=== PATIENT | female | born 1985 | race Hispanic/Latino ===

== ENCOUNTER 2016-12-22 18:35 | Emergency (ER) | payer OTHER ==
[2016-12-22 18:35] VITALS: BMI 21.3
[2016-12-22 19:14] VITALS: TEMP 97.9
--- NOTE | 2016-12-22 20:02 | C.PDOC ---
History Of Present Illness A 36 year old female presents to the ER c/o painful lump in the vagina for 2 days. Patient denies fever, chills, vaginal drainage or bleeding, nausea, vomiting, or any other complaints. Time Seen by Provider: 12/22/16 19:22 Chief Complaint (Nursing): Female Genitourinary History Per: Patient History/Exam Limitations: no limitations Onset/Duration Of Symptoms: Days Current Symptoms Are (Timing): Still Present Severity: Mild Associated Symptoms: denies: Fever, Chills, Nausea, Urinary Symptoms Recent travel outside of the [place]: No Additional History Per: Patient Past Medical History Reviewed: Historical Data, Nursing Documentation, Vital Signs Vital Signs: Last Vital Signs Temp 97.9 F 12/22/16 19:12 Pulse 72 12/22/16 20:07 Resp 18 12/22/16 20:07 BP 124/75 12/22/16 20:07 Pulse Ox 100 12/22/16 23:08 - Medical History PMH: Anemia, Anxiety, Crohn's Disease, Diabetes, Fractures (wrist), Gall Bladder Disease, Kidney Stones, Personality Disorder, Chronic Kidney Disease Surgical History: Appendectomy, Cholecystectomy Family History: States: Unknown Family Hx - Social History Hx Tobacco Use: Yes Hx Alcohol Use: No Hx Substance Use: No - Immunization History Hx Tetanus Toxoid Vaccination: No Hx Influenza Vaccination: No Hx Pneumococcal Vaccination: No Review Of Systems Except As Marked, All Systems Reviewed And Found Negative. Constitutional: Negative for: Fever, Chills Gastrointestinal: Negative for: Nausea, Vomiting Genitourinary: Positive for: Other (Painful lump in vagina). Negative for: Vaginal Discharge, Vaginal Bleeding Physical Exam - Physical Exam Appears: Non-toxic, No Acute Distress Skin: Warm, Dry Head: Atraumatic, Normacephalic Eye(s): bilateral: Normal Inspection, PERRL Gastrointestinal/Abdominal: Normal Exam, No Tenderness Pelvic: No Vaginal Bleeding, No Vaginal Discharge, Other (Pea sized firm indurated and tender lump at the base of the vaginal opening ( perineal area)) Pulses: Left Dorsalis Pedis: Normal, Right Dorsalis Pedis: Normal Neurological/Psych: Oriented x3, Normal Speech, Normal Cognition ED Course And Treatment O2 Sat by Pulse Oximetry: 100 (RA) Pulse Ox Interpretation: Normal - Other Rad X-Ray left foot X-Ray: Interpreted by Me, Viewed By Me Interpretation: no fractures or dislocation Medical Decision Making Medical Decision Making: Plans: -Incision and drainage Procedure: area cleaned with a betadine solution. Using a 18 inch needle, I attempted needle aspiration of the mass with minimal purulent material collected On reassessment, patient is resting comfortably, and is in no acute distress. Patient was instructed to follow up with physician/clinic in 1-2 days for wound check Disposition Counseled Patient/Family Regarding: Diagnosis - Disposition Disposition: HOME/ ROUTINE Disposition Time: 19:59 Condition: STABLE Additional Instructions: Apply warm jerilyn to area Take meds as directed Wound check Return to ER if worse Prescriptions: Sulfamethoxazole/Trimethoprim [Bactrim DS 800 mg-160 mg] 1 tab PO BID #14 tab Instructions: Folliculitis (ED) - Clinical Impression Clinical Impression: Folliculitis - Scribe Statement The provider has reviewed the documentation as recorded by the Scribe Traci oliver All medical record entries made by the Marlynibe were at my direction and personally dictated by me. I have reviewed the chart and agree that the record accurately reflects my personal performance of the history, physical exam, medical decision making, and the department course for this patient. I have also personally directed, reviewed, and agree with the discharge instructions and disposition.
[2016-12-22 20:08] VITALS: BP 124/75; PULSE 72; RESP 18
[2016-12-22 20:09] VITALS: O2SAT 100
== END 2016-12-22 20:10 | disposition home or self-care (01) ==
LOC: C.ER 18:35
DX: L73.9 Follicular disorder, unspecified (principal)

== ENCOUNTER 2016-12-25 10:44 | Emergency (ER) | payer OTHER ==
[2016-12-25 10:50] VITALS: BMI 22.6
[2016-12-25 10:51] VITALS: TEMP 98.4; O2SAT 99
[2016-12-25] MEDS ORDERED: Sodium Chloride 0.9% 1,000 ML IV ONE (11:05)
[2016-12-25] MEDS ORDERED: Sodium Chloride 0.9% 1,000 ML ONE (11:24)
[2016-12-25 11:28] LABS: BASO % 0.6 % (0.0-2.0); EOS # 0.1 K/uL (0.0-0.7); EOS % 2.1 % (0.0-4.0); HEMATOCRIT 38.3 % (34.0-47.0); LYMPH # 0.9 K/uL (1.0-4.3); LYMPH % 13.1 % (20.0-40.0); MEAN CELL VOLUME 85.3 fL (81.0-99.0); MEAN CORPUSCULAR HEMOGLOBIN 28.5 pg (27.0-31.0); MEAN CORPUSCULAR HGB CONC 33.4 g/dL (33.0-37.0); MEAN PLATELET VOLUME 8.9 fL (7.2-11.7); MONO # 0.6 K/uL (0.0-0.8); MONO % 8.5 % (0.0-10.0); NRBC % 0.1 % (0.0-2.0); RED CELL DISTRIBUTION WIDTH 13.7 % (11.5-14.5)
--- NOTE | 2016-12-25 11:35 | C.PDOC ---
History Of Present Illness The patient, a 31 y/o female whose PMHx includes Crohn's disease and Endometriosis, presents to the ED for evaluation of abdominal pain and right- sided flank pain which has been occurring in intermittent episodes for around 2 months. Patient also reports hematuria. Patient notes she was evaluated in ED few days ago and underwent draining of Bartholin Cyst and was prescribed antibiotics. Patient denies fever, chills, nausea, vomiting. Patient has history of Medullary Sponge Kidney and Kidney Stones. Time Seen by Provider: 12/25/16 10:57 Chief Complaint (Nursing): Abdominal Pain History Per: Patient History/Exam Limitations: no limitations Onset/Duration Of Symptoms: Intermittent Episodes Current Symptoms Are (Timing): Still Present Quality Of Discomfort: "Pain" Associated Symptoms: Urinary Symptoms (+hematuria ). denies: Fever, Chills Additional History Per: Patient Abnormal Vaginal Bleeding: No Past Medical History Reviewed: Historical Data, Nursing Documentation, Vital Signs Vital Signs: Last Vital Signs Temp 98.4 F 12/25/16 10:51 Pulse 82 12/25/16 11:52 Resp 16 12/25/16 11:52 BP 122/83 12/25/16 11:52 Pulse Ox 99 12/25/16 13:35 - Medical History PMH: Anemia, Anxiety, Crohn's Disease, Diabetes, Fractures (wrist), Gall Bladder Disease, Kidney Stones, Personality Disorder, Chronic Kidney Disease Surgical History: Appendectomy, Cholecystectomy Family History: States: Unknown Family Hx - Social History Hx Tobacco Use: Yes Hx Alcohol Use: No Hx Substance Use: No - Immunization History Hx Tetanus Toxoid Vaccination: No Hx Influenza Vaccination: No Hx Pneumococcal Vaccination: No Review Of Systems Except As Marked, All Systems Reviewed And Found Negative. Constitutional: Negative for: Fever, Chills Gastrointestinal: Positive for: Abdominal Pain Genitourinary: Positive for: Hematuria Musculoskeletal: Positive for: Other (+right-sided flank pain ) Physical Exam - Physical Exam Appears: Non-toxic, No Acute Distress Skin: Normal Color, Warm, Dry Head: Atraumatic, Normacephalic Eye(s): bilateral: Normal Inspection Oral Mucosa: Moist Neck: Supple Chest: Symmetrical, No Deformity, No Tenderness Cardiovascular: Rhythm Regular, No Murmur Respiratory: Normal Breath Sounds, No Rales, No Rhonchi, No Wheezing Gastrointestinal/Abdominal: Soft, No Tenderness, No Guarding, No Rebound Back: CVA Tenderness (right-sided ) Extremity: Normal ROM, Capillary Refill (less than 2 seconds ) Neurological/Psych: Oriented x3, Normal Speech, Normal Cognition Gait: Steady ED Course And Treatment - Laboratory Results Result Diagrams: 12/25/16 11:23 12/25/16 11:23 Lab Interpretation: Normal Urine POC: Negative O2 Sat by Pulse Oximetry: 99 (on RA) Pulse Ox Interpretation: Normal - CT Scan/US No standard instances Other Rad Studies (CT/US): Read By Radiologist, Radiology Report Reviewed CT/US Interpretation: FINDINGS: LOWER THORAX: Unremarkable. LIVER: Tiny at small calcifications seen along the inferomedial aspect right lobe liver bordering the surface at and/or within the capsule nonspecific though unchanged from prior exam. GALLBLADDER AND BILE DUCTS: Status post cholecystectomy with metallic clips in the gallbladder fossa. PANCREAS: Unremarkable. No mass. No ductal dilatation. SPLEEN: Spleen measures nearly 11.5 cm in AP dimension. No splenic mass collection or calcification. ADRENALS: No adrenal lesions. There. KIDNEYS AND URETERS: Re- demonstrated are changes of hyperdense changes likely microcalcification consistent with Medrol O calcinosis. Discrete approximately 6 mm nonobstructing calculus mid to lower pole right kidney. No evidence of hydronephrosis. BLADDER: The urinary bladder is physiologically distended. No evidence of intraluminal urinary bladder calculi. No significant urinary bladder wall thickening. REPRODUCTIVE: Unremarkable. APPENDIX: Appendix is not seen with certainty however no inflammatory changes right lower quadrant of the abdomen. BOWEL: Unremarkable. No obstruction. No gross mural thickening. PERITONEUM: Unremarkable. No fluid collection. No free air. Slight dehiscence mid anterior abdominal wall the above and at the level of the umbilicus. LYMPH NODES: Unremarkable. No enlarged lymph nodes. VASCULATURE: Unremarkable. No aortic aneurysm. BONES: No fracture or destructive lesion. OTHER FINDINGS: None. IMPRESSION: Findings consistent with measurable calcinosis both kidneys. Nonobstructing calculus measuring approximately 6 mm mid to lower pole right kidney. No evidence of hydronephrosis. Status post cholecystectomy. Several tiny calcifications along the inferomedial aspect right lobe liver again noted unchanged from prior study. Rule out prior exposure to granulomatous disease process. Clinical correlation recommended. See above discussion for additional findings and details Progress Note: Labs, CT A/P ordered and reviewed. Patient received Morphine IV and IV Fluids. Reassessment Condition: Improved Disposition Counseled Patient/Family Regarding: Studies Performed, Diagnosis, Need For Followup, Rx Given - Disposition Referrals: [facility] [Outside] [facility] [Outside] Disposition: HOME/ ROUTINE Disposition Time: 13:40 Condition: STABLE Additional Instructions: Follow up with your kidney doctor for furter evaluation Prescriptions: traMADol [Ultram] 50 mg PO TID #10 tab Instructions: Flank Pain (ED) - POA Present On Arrival: None Core Measure Indicators: Chest Pain - Clinical Impression Clinical Impression: Flank pain, Medullary sponge kidney, Crohns disease - PA / NURSE CHARGE RN / Resident Statement MD/DO has reviewed & agrees with the documentation as recorded. - Scribe Statement The provider has reviewed the documentation as recorded by the Scribe (Tasha Bazan) All medical record entries made by the Scribe were at my direction and personally dictated by me. I have reviewed the chart and agree that the record accurately reflects my personal performance of the history, physical exam, medical decision making, and the department course for this patient. I have also personally directed, reviewed, and agree with the discharge instructions and disposition.
[2016-12-25 11:36] LABS: CHLORIDE 101 mmol/L (98-107)
[2016-12-25 11:37] LABS: POTASSIUM 3.8 mmol/L (3.6-5.2); SODIUM 134 mmol/L (132-148)
[2016-12-25 11:39] LABS: AST/SGOT 22 U/L (14-36); BILIRUBIN,TOTAL 0.3 mg/dL (0.2-1.3); CARBON DIOXIDE 25 mmol/L (22-30); GFR AFRICAN-AMERICAN > 60
[2016-12-25 11:40] LABS: ALB/GLOB RATIO 1.6 (1.0-2.1); ALKALINE PHOSPHATASE 82 U/L (38-126); ALT/SGPT 35 U/L (9-52); BLOOD UREA NITROGEN 13 mg/dL (7-17); CALCIUM 8.7 mg/dl (8.6-10.4); GLUCOSE,RANDOM 93 mg/dL (65-105); TOTAL PROTEIN 7.2 g/dL (6.3-8.3)
[2016-12-25 11:44] LABS: RBC URINE 1001 /hpf (0-3); URINE BILIRUBIN NEGATIVE (NEGATIVE); URINE BLOOD 3+ (NEGATIVE); URINE COLOR Yellow (YELLOW); URINE GLUCOSE (UA) NORMAL (Normal); URINE KETONE NEGATIVE (NEGATIVE); URINE LEUKOCYTE ESTERASE TRACE Leu/uL (Negative); URINE PROTEIN 1+ mg/dL (NEGATIVE); URINE UROBILINOGEN NORMAL mg/dL (0.2-1.0); WBC URINE 11 /hpf (0-5)
[2016-12-25] MEDS ORDERED: Alum-Mag Hydrox-Simethicone Susp (30 mL) ONE (11:48)
[2016-12-25] MEDS ORDERED: Alum-Mag Hydrox-Simethicone Susp (30 mL) PO STA (11:50)
[2016-12-25 11:53] VITALS: BP 122/83; PULSE 82; RESP 16
--- NOTE | 2016-12-25 13:07 | CT ---
PROCEDURE: CT Abdomen and Pelvis dated 12/25/2016 HISTORY: Pain COMPARISON: Comparison made with prior CT scan abdomen pelvis 05/13/2016 TECHNIQUE: Contiguous axial images of the abdomen and pelvis performed without oral or intravenous contrast material. . Coronal and Sagittal reformats generated. Radiation dose: Total exam DLP = 227.99 mGy-cm. This CT exam was performed using one or more of the following dose reduction techniques: Automated exposure control, adjustment of the mA and/or kV according to patient size, and/or use of iterative reconstruction technique. FINDINGS: LOWER THORAX: Unremarkable. LIVER: Tiny at small calcifications seen along the inferomedial aspect right lobe liver bordering the surface at and/or within the capsule nonspecific though unchanged from prior exam. GALLBLADDER AND BILE DUCTS: Status post cholecystectomy with metallic clips in the gallbladder fossa. PANCREAS: Unremarkable. No mass. No ductal dilatation. SPLEEN: Spleen measures nearly 11.5 cm in AP dimension. No splenic mass collection or calcification. ADRENALS: No adrenal lesions. There KIDNEYS AND URETERS: Re- demonstrated are changes of hyperdense changes likely microcalcification consistent with Medrol O calcinosis. Discrete approximately 6 mm nonobstructing calculus mid to lower pole right kidney. No evidence of hydronephrosis. BLADDER: The urinary bladder is physiologically distended. No evidence of intraluminal urinary bladder calculi. No significant urinary bladder wall thickening. REPRODUCTIVE: Unremarkable. APPENDIX: Appendix is not seen with certainty however no inflammatory changes right lower quadrant of the abdomen. BOWEL: Unremarkable. No obstruction. No gross mural thickening. PERITONEUM: Unremarkable. No fluid collection. No free air. Slight dehiscence mid anterior abdominal wall the above and at the level of the umbilicus LYMPH NODES: Unremarkable. No enlarged lymph nodes. VASCULATURE: Unremarkable. No aortic aneurysm. BONES: No fracture or destructive lesion. OTHER FINDINGS: None. IMPRESSION: Findings consistent with measurable calcinosis both kidneys. Nonobstructing calculus measuring approximately 6 mm mid to lower pole right kidney. No evidence of hydronephrosis. Status post cholecystectomy. Several tiny calcifications along the inferomedial aspect right lobe liver again noted unchanged from prior study. Rule out prior exposure to granulomatous disease process. Clinical correlation recommended. See above discussion for additional findings and details
== END 2016-12-25 14:34 | disposition home or self-care (01) ==
LOC: C.ER 10:44
DX: Q61.5 Medullary cystic kidney (principal); K50.90 Crohn's disease, unspecified, without complications
CPT/HCPCS: 74176; 80053; 81001; 84703; 85025; 96361; 96374; 99285; J2270; J7040

== ENCOUNTER 2016-12-31 19:40 | Emergency (ER) | payer OTHER ==
[2016-12-31 19:40] VITALS: BMI 22.6
[2016-12-31] MEDS ORDERED: Sodium Chloride 0.9% 2,000 ML IV ONE (19:50)
--- NOTE | 2016-12-31 19:53 | C.PDOC ---
History Of Present Illness A 31 y/o female presents to the ER c/o right flank pain that radiates to the groin for a couple of days. Pt notes the pain as sharp that is 5/10 discomfort that is worse today. Pt denies fever, chills, nausea, vomiting, dysuria, hematuria, vaginal bleeding or discharge, or any other complaints. Time Seen by Provider: 12/31/16 19:50 Chief Complaint (Nursing): Abdominal Pain History Per: Patient History/Exam Limitations: no limitations Onset/Duration Of Symptoms: Days Current Symptoms Are (Timing): Still Present Severity: Mild Pain Scale Rating Of: 5 Location Of Pain/Discomfort: RLQ, Other (Right flank radiating to the groin) Radiation Of Pain To:: Other (groin) Quality Of Discomfort: Sharp Associated Symptoms: denies: Fever, Chills, Nausea, Vomiting, Urinary Symptoms Recent travel outside of the [place]: No Additional History Per: Patient Abnormal Vaginal Bleeding: No Past Medical History Reviewed: Historical Data, Nursing Documentation, Vital Signs Vital Signs: Last Vital Signs Temp 98.5 F 12/31/16 19:41 Pulse 94 H 12/31/16 19:41 Resp 20 12/31/16 19:41 BP 132/95 H 12/31/16 19:41 Pulse Ox 100 12/31/16 21:36 - Medical History PMH: Anemia, Anxiety, Crohn's Disease, Diabetes, Fractures (wrist), Gall Bladder Disease, Kidney Stones, Personality Disorder, Chronic Kidney Disease Surgical History: Appendectomy, Cholecystectomy Family History: States: Unknown Family Hx - Social History Hx Tobacco Use: Yes Hx Alcohol Use: No Hx Substance Use: No - Immunization History Hx Tetanus Toxoid Vaccination: No Hx Influenza Vaccination: No Hx Pneumococcal Vaccination: No Review Of Systems Except As Marked, All Systems Reviewed And Found Negative. Constitutional: Negative for: Fever, Chills ENT: Negative for: Throat Pain Cardiovascular: Negative for: Chest Pain Gastrointestinal: Negative for: Nausea, Vomiting Genitourinary: Positive for: Other (Right flank pain radiating to the groin). Negative for: Dysuria, Hematuria, Vaginal Discharge, Vaginal Bleeding Skin: Negative for: Rash, Lesions, Jaundice Neurological: Negative for: Weakness Psych: Negative for: Anxiety Physical Exam - Physical Exam Appears: Non-toxic, No Acute Distress Skin: Warm, Dry Head: Normacephalic Eye(s): bilateral: Normal Inspection Oral Mucosa: Moist Neck: Supple Chest: Symmetrical Cardiovascular: Rhythm Regular, No Murmur Respiratory: No Rales, No Rhonchi, No Wheezing Gastrointestinal/Abdominal: Soft, Tenderness (Mild subrapubic tenderness), No Guarding, No Rebound Back: CVA Tenderness (Flank tenderness), No Vertebral Tenderness, No Paraspinal Tenderness Extremity: Normal ROM Extremity: Bilateral: Atraumatic, Normal Color And Temperature Neurological/Psych: Oriented x3, Normal Speech, Normal Cognition Gait: Steady ED Course And Treatment - Laboratory Results Result Diagrams: 12/31/16 20:00 12/31/16 20:00 O2 Sat by Pulse Oximetry: 100 (RA) Pulse Ox Interpretation: Normal Progress Note: blood work, ivf Reevaluation Time: 23:27 Reassessment Condition: Improved Disposition Counseled Patient/Family Regarding: Studies Performed, Diagnosis, Need For Followup, Rx Given - Disposition Referrals: Miko Narayanan Jr., MD [Staff Provider] - Disposition: HOME/ ROUTINE Disposition Time: 21:27 Condition: FAIR Prescriptions: Nitrofurantoin Macrocrystals [Macrobid] 1 cap PO BID #14 cap Tamsulosin HCl [Flomax] 0.4 mg PO DAILY #15 cap.er.24h traMADol [Ultram] 50 mg PO TID #15 tab Instructions: Renal Colic (ED), Urinary Tract Infection in Women (DC) - Clinical Impression Clinical Impression: UTI (urinary tract infection), Abdominal pain, Renal colic on right side - Scribe Statement The provider has reviewed the documentation as recorded by the Marlynibtapan oliver All medical record entries made by the Marlynibtapan were at my direction and personally dictated by me. I have reviewed the chart and agree that the record accurately reflects my personal performance of the history, physical exam, medical decision making, and the department course for this patient. I have also personally directed, reviewed, and agree with the discharge instructions and disposition.
[2016-12-31 19:54] VITALS: RESP 20
[2016-12-31 20:05] LABS: BASO # 0.1 K/uL (0.0-0.2); BASO % 1.1 % (0.0-2.0); EOS # 0.2 K/uL (0.0-0.7); EOS % 2.4 % (0.0-4.0); HEMATOCRIT 40.3 % (34.0-47.0); LYMPH # 2.1 K/uL (1.0-4.3); LYMPH % 21.9 % (20.0-40.0); MEAN CELL VOLUME 84.2 fL (81.0-99.0); MEAN CORPUSCULAR HEMOGLOBIN 28.1 pg (27.0-31.0); MEAN CORPUSCULAR HGB CONC 33.3 g/dL (33.0-37.0); MONO # 0.5 K/uL (0.0-0.8); MONO % 5.8 % (0.0-10.0); RED CELL DISTRIBUTION WIDTH 13.4 % (11.5-14.5); WHITE BLOOD COUNT 9.4 K/uL (4.8-10.8)
[2016-12-31 20:12] LABS: CHLORIDE 100 mmol/L (98-107); INR 1.1
[2016-12-31 20:13] LABS: POTASSIUM 3.7 mmol/L (3.6-5.2); SODIUM 140 mmol/L (132-148)
[2016-12-31 20:15] LABS: ALB/GLOB RATIO 1.5 (1.0-2.1); ALKALINE PHOSPHATASE 72 U/L (38-126); AST/SGOT 18 U/L (14-36); BILIRUBIN,TOTAL 0.7 mg/dL (0.2-1.3); BLOOD UREA NITROGEN 15 mg/dL (7-17); CARBON DIOXIDE 26 mmol/L (22-30); GFR AFRICAN-AMERICAN > 60; TOTAL PROTEIN 7.7 g/dL (6.3-8.3)
[2016-12-31 20:16] LABS: ALT/SGPT 21 U/L (9-52); GLUCOSE,RANDOM 92 mg/dL (65-105)
[2016-12-31 21:12] LABS: RBC URINE 545 /hpf (0-3); TRANSITIONAL EPITHIAL < 1 /hpf (0-3); URINE BACTERIA OCC (<OCC); URINE BILIRUBIN NEGATIVE (NEGATIVE); URINE BLOOD 3+ (NEGATIVE); URINE COLOR Yellow (YELLOW); URINE GLUCOSE (UA) NORMAL (Normal); URINE KETONE TRACE mg/dL (NEGATIVE); URINE LEUKOCYTE ESTERASE 1+ Leu/uL (Negative); URINE PROTEIN 1+ mg/dL (NEGATIVE); URINE UROBILINOGEN NORMAL mg/dL (0.2-1.0); WBC URINE 16 /hpf (0-5)
[2016-12-31 23:54] VITALS: BP 112/76; PULSE 72; TEMP 98; O2SAT 98
== END 2016-12-31 23:52 | disposition home or self-care (01) ==
LOC: C.ER 19:40
DX: N39.0 Urinary tract infection, site not specified (principal); N23 Unspecified renal colic
CPT/HCPCS: 80053; 81001; 83690; 84703; 85025; 85610; 85730; 96374; 96375; 96376; 99284; J1885; J2270; J2405; J7040

== ENCOUNTER 2017-02-11 06:18 | Day surgery (SDC) | payer OTHER ==
[2017-01-23 11:59] VITALS: BMI 24.8
[2017-02-11] MEDS ORDERED: Lactated Ringer's 1,000 ML IV ONE ×3 (07:29)
[2017-02-11] MEDS ORDERED: Propofol 10 mg/ml Inj (20 ML) ONE (07:44)
[2017-02-11] MEDS ORDERED: Midazolam 2 MG/2 ML VIAL ONE (07:45)
[2017-02-11] MEDS ORDERED: cefOXitin IV 1 gm in Dextrose 1 GM/50 ML BAG IVPB ONE (07:53)
[2017-02-11] MEDS ORDERED: cefOXitin IV 2 gm in Dextrose 0 GM/0 ML BAG IVPB ONE (07:53)
[2017-02-11] MEDS ORDERED: HYDROmorphone 0.5 mg/0.5 ml ISec IVP PRN (08:14)
[2017-02-11] MEDS ORDERED: Lactated Ringer's 500 ML IV ONE (09:40)
[2017-02-11 10:26] VITALS: RESP 16; TEMP 97
[2017-02-11 14:00] VITALS: BP 103/56; PULSE 63; O2SAT 100
--- NOTE | 2017-03-11 12:52 | PCM.OP ---
Operative Report - Operative Report Date of Surgery/Procedure: 02/11/17 Surgeon: Dr. Mccormick Anesthesia/Sedation: General Pre-Operative Diagnosis: Fibroids Uterus Menorrhagia Post-Operative Diagnosis: Fibroids Uterus Menorrhagia Operative Findings: 1 cm posterior submucosal myoma. Procedure/Operation Description: Patient was informed of the risks of the planned procedure including biological or deadly infection, hemorrhoid defense thrombosis, atelectasis, pneumonia, pulmonary embolism, damage to the bladder, damage to the ureter, renal insufficiency, renal failure, wound infection, instant sensational hernia, inflammation or damage to the large and small intestine, damage to inferior vena cava requiring extensive repair, anesthesia complications, electrolyte imbalance, possibility of , fluid overload, cerebral edema, embolism, recurrence of incisional fibroids. These risk have been explained to the patient; all questions were answered and informed consent was obtained. Patient was taken to the operating room in a stable condition under a suitable level of general anesthesia. She was prepped and draped in a sterile fashion after having been placed in a dorsal lithotomy position. The bladder was then bred after catheterization; examination and anesthesia revealed a normal size uterus, anteverted with no adnexal masses. A weighted speculum was inserted into the vagina. The anterior lip of the cervix was grasped using a single tooth tenaculum and endocervical curettage was performed and scan tissue was obtained. Uterus was sounded to 7 cm and the cervix was dilated to a number 69 dilator. A hysteroscope was inserted into the uterus and initiating myosure device at 1 cm posterior submucosal myoma. It was resected up to the level of the endometrium with good hemostasis. The hysteroscope was then removed and a general endometrial curettage was performed and scar tissue was obtained. At the end of the procedure the instruments were removed from the vagina, there was good hemostasis. The patient was the transferred into the recovery room in a stable condition. Pad and instrument counts were correct x2. Estimated Blood Loss: Less than 100 CC Complications: None
== END 2017-02-11 12:56 | disposition home or self-care (01) ==
LOC: C.SDS 06:18
PROVIDERS: ATTEND Obstetrics & Gynecology Reproductive Endocrinology
DX: D25.9 Leiomyoma of uterus, unspecified (principal); N88.2 Stricture and stenosis of cervix uteri
CPT/HCPCS: 36415; 58561; 82948; 86850; 86900; 88305; J0694; J2250; J2704; J3010; J7120

== ENCOUNTER 2017-02-14 22:21 | Emergency (ER) | payer OTHER ==
[2017-02-14 22:21] VITALS: BMI 24.8
[2017-02-14 22:56] VITALS: BP 122/89; PULSE 83; RESP 20; TEMP 98.3; O2SAT 100
[2017-02-14 23:07] LABS: HCG,QUALITATIVE URINE NEGATIVE (NEGATIVE)
[2017-02-14 23:12] LABS: SQUAMOUS EPITHIAL 7 /hpf (0-5); URINE BACTERIA OCC (<OCC); URINE BILIRUBIN NEGATIVE (NEGATIVE); URINE BLOOD 2+ (NEGATIVE); URINE CLARITY Clear (Clear); URINE COLOR Yellow (YELLOW); URINE GLUCOSE (UA) NORMAL (Normal); URINE LEUKOCYTE ESTERASE 2+ Leu/uL (Negative); URINE NITRATE NEGATIVE (NEGATIVE); URINE PROTEIN NEGATIVE (NEGATIVE); URINE UROBILINOGEN NORMAL mg/dL (0.2-1.0)
[2017-02-14] MEDS ORDERED: Bacitracin 500 Units/gm Oint Foilpak UD TOP ONE (23:38)
[2017-02-14] MEDS ORDERED: Bacitracin 500 Units/gm Oint Foilpak UD ONE (23:41)
--- NOTE | 2017-02-15 00:02 | C.PDOC ---
History Of Present Illness 31 year old female presents to the ED with complaints of an itchy burning sensation to the vaginal area with white discharge beginning today. Patient states two days ago Dr. Alvarez performed a D&C and she was placed on antibiotics. She denies any back pain, fever, or abdominal pain. Time Seen by Provider: 02/14/17 22:56 Chief Complaint (Nursing): Female Genitourinary History Per: Patient History/Exam Limitations: no limitations Onset/Duration Of Symptoms: Hrs Current Symptoms Are (Timing): Still Present Associated Symptoms: Other (itchy burning sensation to vaginal area and white discharge ). denies: Fever, Chills, Nausea, Vomiting Recent travel outside of the [place]: No Abnormal Vaginal Bleeding: No Past Medical History Reviewed: Historical Data, Nursing Documentation, Vital Signs Vital Signs: Last Vital Signs Temp 98.3 F 02/14/17 22:45 Pulse 83 02/14/17 22:45 Resp 20 02/14/17 22:45 BP 122/89 02/14/17 22:45 Pulse Ox 100 02/15/17 02:44 - Medical History PMH: Anemia, Anxiety, Crohn's Disease, Diabetes, Fractures (RIGHT HAND-CASTED ONLY), Gall Bladder Disease, Kidney Stones, Personality Disorder, Chronic Kidney Disease Surgical History: Appendectomy, Cholecystectomy Family History: States: Unknown Family Hx - Social History Hx Tobacco Use: Yes Hx Alcohol Use: No Hx Substance Use: No - Immunization History Hx Tetanus Toxoid Vaccination: No Hx Influenza Vaccination: No Hx Pneumococcal Vaccination: No Review Of Systems Constitutional: Negative for: Fever, Chills Physical Exam - Physical Exam Appears: Non-toxic, No Acute Distress Skin: Warm, Dry Head: Atraumatic, Normacephalic Eye(s): bilateral: Normal Inspection, PERRL, EOMI Oral Mucosa: Moist Neck: Normal ROM, Supple Chest: Symmetrical, No Deformity Cardiovascular: Rhythm Regular Respiratory: No Rales, No Rhonchi, No Stridor, No Wheezing Gastrointestinal/Abdominal: Soft, No Tenderness, No Distention, No Guarding, No Rebound Pelvic: Normal External Exam, No Vaginal Bleeding, Vaginal Discharge (white curd -like discharge ), No Cervical Motion Tenderness, No Adnexal Tenderness Extremity: Normal ROM, No Tenderness, No Swelling Neurological/Psych: Oriented x3, Normal Speech, Normal Cranial Nerves, Normal Motor, Normal Sensation Gait: Steady ED Course And Treatment O2 Sat by Pulse Oximetry: 100 (room air ) Pulse Ox Interpretation: Normal Disposition - Disposition Referrals: Saud Mccormick MD [Staff Provider] - Disposition: HOME/ ROUTINE Disposition Time: 00:00 Condition: GOOD Additional Instructions: Follow up with the OBGYN doctor within 1-2 days. Return if worsened Prescriptions: Bacitracin Ointment [Bacitracin] 30 gm TOP BID #1 tube Fluconazole [Diflucan] 150 mg PO ONCE #1 tab Instructions: Vulvovaginal Candidiasis (ED) - Clinical Impression Clinical Impression: Vulvovaginal candidiasis - Scribe Statement The provider has reviewed the documentation as recorded by the Scribe Nadege Larson All medical record entries made by the Scribe were at my direction and personally dictated by me. I have reviewed the chart and agree that the record accurately reflects my personal performance of the history, physical exam, medical decision making, and the department course for this patient. I have also personally directed, reviewed, and agree with the discharge instructions and disposition.
== END 2017-02-15 00:05 | disposition home or self-care (01) ==
LOC: C.ER 22:21
DX: B37.3 Candidiasis of vulva and vagina (principal)

== ENCOUNTER 2017-02-20 14:39 | Emergency (ER) | payer OTHER ==
[2017-02-20 14:39] VITALS: BMI 24.8
--- NOTE | 2017-02-20 15:59 | C.PDOC ---
History Of Present Illness 31-year-old female, PMHx includes Anemia, Anxiety, Crohn's Disease, Diabetes, Endometriosis, Gall Bladder Disease, Kidney Stones, Personality Disorder, Chronic Kidney Disease, presents to the emergency department with complaints of vaginal bleeding. Patient reports she had a D&C procedure on 02/11. This morning , patient woke up with right-sided flank pain associated with a vaginal bleed. Denies fevers, chills, or any other symptoms. Time Seen by Provider: 02/20/17 15:04 Chief Complaint (Nursing): Back Pain History Per: Patient History/Exam Limitations: no limitations Onset/Duration Of Symptoms: Hrs Current Symptoms Are (Timing): Still Present Past Medical History Reviewed: Historical Data, Nursing Documentation, Vital Signs Vital Signs: Last Vital Signs Temp 97.9 F 02/20/17 14:44 Pulse 75 02/20/17 18:35 Resp 16 02/20/17 18:35 BP 102/69 02/20/17 18:35 Pulse Ox 100 02/20/17 18:55 - Medical History PMH: Anemia, Anxiety, Crohn's Disease, Diabetes, Fractures (RIGHT HAND-CASTED ONLY), Gall Bladder Disease, Kidney Stones, Personality Disorder, Chronic Kidney Disease Surgical History: Appendectomy, Cholecystectomy Family History: States: No Known Family Hx - Social History Hx Tobacco Use: Yes Hx Alcohol Use: No Hx Substance Use: No - Immunization History Hx Tetanus Toxoid Vaccination: No Hx Influenza Vaccination: No Hx Pneumococcal Vaccination: No Review Of Systems Except As Marked, All Systems Reviewed And Found Negative. Constitutional: Negative for: Fever, Chills Cardiovascular: Negative for: Chest Pain, Palpitations Respiratory: Negative for: Shortness of Breath Gastrointestinal: Negative for: Nausea, Vomiting Genitourinary: Positive for: Vaginal Bleeding, Pelvic Pain Physical Exam - Physical Exam Appears: Non-toxic, No Acute Distress Skin: Warm, Dry, No Rash Head: Atraumatic, Normacephalic Eye(s): bilateral: Normal Inspection, PERRL Nose: Normal Oral Mucosa: Moist Lips: Normal Appearing Neck: Normal ROM Cardiovascular: Rhythm Regular, No Murmur Respiratory: Normal Breath Sounds, No Accessory Muscle Use Gastrointestinal/Abdominal: Soft, Tenderness (right sided, pelvic.), No Guarding , No Rebound Extremity: Normal ROM Neurological/Psych: Oriented x3, Normal Speech ED Course And Treatment - Laboratory Results Result Diagrams: 02/20/17 16:05 02/20/17 16:05 O2 Sat by Pulse Oximetry: 100 Pulse Ox Interpretation: Normal - CT Scan/US Pelvis ultrasound Other Rad Studies (CT/US): Read By Radiologist, Radiology Report Reviewed CT/US Interpretation: FINDINGS: UTERUS: Measures 8.6 x 4.3 x 5.7 cm. Anteverted. ENDOMETRIUM: Measures 6 mm in diameter. CERVIX: No cervical abnormality identified. RIGHT OVARY: Measures 2.3 x 1.5 x 2.2 cm. Blood flow is demonstrated. LEFT OVARY: Measures 2.7 x 1.8 x 2.2 cm. 0.7 x 0.5 x 0.8 cm follicle/cyst. Blood flow is demonstrated. FREE FLUID: Small pelvic free fluid. OTHER FINDINGS: None. IMPRESSION: 8 mm left ovarian follicle/cyst. Small pelvic free fluid. Progress Note: On re-exam patient feels better and is ready to be d/c home. Disposition - Disposition Referrals: Raf Marte DO [Staff Provider] - Disposition: HOME/ ROUTINE Disposition Time: 18:51 Condition: STABLE Additional Instructions: Follow up with PMD and OBGYn within 1-2 days. Return to Ed if feel worse. 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 - Scribe Statement The provider has reviewed the documentation as recorded by the Scribe (Sarah Burch) All medical record entries made by the Scribe were at my direction and personally dictated by me. I have reviewed the chart and agree that the record accurately reflects my personal performance of the history, physical exam, medical decision making, and the department course for this patient. I have also personally directed, reviewed, and agree with the discharge instructions and disposition.
[2017-02-20] MEDS ORDERED: Sodium Chloride 0.9% 1,000 ML IV STA (16:02)
[2017-02-20] MEDS ORDERED: Sodium Chloride 0.9% 1,000 ML ONE (16:06)
[2017-02-20] MEDS ORDERED: Morphine 4 MG/ML VIAL ONE (16:06)
[2017-02-20 16:07] LABS: HCG,QUALITATIVE URINE NEGATIVE (NEGATIVE)
[2017-02-20 16:11] LABS: BASO # 0.1 K/uL (0.0-0.2); BASO % 1.2 % (0.0-2.0); EOS # 0.1 K/uL (0.0-0.7); EOS % 1.3 % (0.0-4.0); LYMPH # 1.1 K/uL (1.0-4.3); MEAN CELL VOLUME 85.8 fL (81.0-99.0); MEAN CORPUSCULAR HEMOGLOBIN 28.4 pg (27.0-31.0); MEAN CORPUSCULAR HGB CONC 33.1 g/dL (33.0-37.0); MEAN PLATELET VOLUME 10.6 fL (7.2-11.7); MONO # 0.5 K/uL (0.0-0.8); MONO % 7.7 % (0.0-10.0); NEUT # 4.8 K/uL (1.8-7.0); NEUT % 72.8 % (50.0-75.0); RBC 4.57 Mil/uL (3.80-5.20); RED CELL DISTRIBUTION WIDTH 14.1 % (11.5-14.5); WHITE BLOOD COUNT 6.6 K/uL (4.8-10.8)
[2017-02-20 16:13] LABS: SQUAMOUS EPITHIAL 17 /hpf (0-5); URINE BACTERIA RARE (<OCC); URINE BILIRUBIN NEGATIVE (NEGATIVE); URINE BLOOD 3+ (NEGATIVE); URINE CLARITY Hazy (Clear); URINE COLOR Yellow (YELLOW); URINE GLUCOSE (UA) NORMAL (Normal); URINE LEUKOCYTE ESTERASE 3+ Leu/uL (Negative); URINE NITRATE NEGATIVE (NEGATIVE); URINE PROTEIN 1+ mg/dL (NEGATIVE); URINE UROBILINOGEN NORMAL mg/dL (0.2-1.0)
[2017-02-20 16:19] LABS: ALBUMIN 4.1 g/dL (3.5-5.0)
[2017-02-20 16:22] LABS: ALB/GLOB RATIO 1.4 (1.0-2.1); ALT/SGPT 14 U/L (9-52); AST/SGOT 21 U/L (14-36); BLOOD UREA NITROGEN 13 mg/dL (7-17); GFR AFRICAN-AMERICAN > 60; GFR NON-AFRICAN AMERICAN > 60
[2017-02-20 16:23] LABS: CALCIUM 9.9 mg/dl (8.6-10.4); LIPASE 60 U/L (23-300)
[2017-02-20] MEDS ORDERED: Aluminum Hydroxide/Magnesium Hydroxide Susp (30 mL) PO ONE (16:43)
[2017-02-20] MEDS ORDERED: Aluminum Hydroxide/Magnesium Hydroxide Susp (30 mL) ONE (16:45)
--- NOTE | 2017-02-20 18:03 | US ---
HISTORY: pelvic pain COMPARISON: Pelvic ultrasound performed 02/03/14 TECHNIQUE: Real-time transabdominal pelvic ultrasound was performed. In addition a transvaginal pelvic ultrasound was necessary to better depict pelvic anatomy. FINDINGS: UTERUS: Measures 8.6 x 4.3 x 5.7 cm. Anteverted. ENDOMETRIUM: Measures 6 mm in diameter. CERVIX: No cervical abnormality identified. RIGHT OVARY: Measures 2.3 x 1.5 x 2.2 cm. Blood flow is demonstrated. LEFT OVARY: Measures 2.7 x 1.8 x 2.2 cm. 0.7 x 0.5 x 0.8 cm follicle/cyst. Blood flow is demonstrated. FREE FLUID: Small pelvic free fluid. OTHER FINDINGS: None. IMPRESSION: 8 mm left ovarian follicle/cyst. Small pelvic free fluid.
[2017-02-20 19:29] VITALS: BP 102/68; PULSE 62; RESP 18; TEMP 97.7; O2SAT 97
== END 2017-02-20 19:20 | disposition home or self-care (01) ==
LOC: C.ER 14:39
DX: R10.2 Pelvic and perineal pain (principal)
CPT/HCPCS: 76830; 76856; 80053; 81001; 83690; 84703; 85025; 96361; 96374; 96375; 99285; J2270; J2405; J7040

== ENCOUNTER 2017-02-25 15:05 | Emergency (ER) | payer OTHER ==
[2017-02-25 15:05] VITALS: BMI 24.8
[2017-02-25 15:17] VITALS: RESP 18
[2017-02-25] MEDS ORDERED: oxyCODONE 5 mg Immediate Release Tab PO STA (15:57)
[2017-02-25] MEDS ORDERED: oxyCODONE 5 mg Immediate Release Tab ONE (16:13)
[2017-02-25 16:49] VITALS: BP 105/70; PULSE 66; TEMP 97.6; O2SAT 100
--- NOTE | 2017-02-25 18:20 | C.PDOC ---
History Of Present Illness 31 yr old female presents to the ER with complaints of persistent vaginal discharge, whitish in nature and burning with urination. Patient states she was seen last week for same symptoms last week and resolved with medications. Patient reports she has a CANCER REGISTRY COORDINATOR appointment tomorrow. Denies fever, nausea, vomiting, abdominal pain, diarrhea, hematuria, vaginal bleeding, back pain, weakness or numbness. Time Seen by Provider: 02/25/17 15:30 Chief Complaint (Nursing): Female Genitourinary History Per: Patient History/Exam Limitations: no limitations Onset/Duration Of Symptoms: Persistent Current Symptoms Are (Timing): Still Present Recent travel outside of the [place]: No Past Medical History Reviewed: Historical Data, Nursing Documentation, Vital Signs Vital Signs: Last Vital Signs Temp 97.6 F 02/25/17 16:47 Pulse 66 02/25/17 16:47 Resp 18 02/25/17 16:47 BP 105/70 02/25/17 16:47 Pulse Ox 100 02/25/17 18:22 - Medical History PMH: Anemia, Anxiety, Crohn's Disease, Diabetes, Fractures (RIGHT HAND-CASTED ONLY), Gall Bladder Disease, Kidney Stones, Personality Disorder, Chronic Kidney Disease Surgical History: Appendectomy, Cholecystectomy Family History: States: No Known Family Hx - Social History Hx Tobacco Use: Yes Hx Alcohol Use: No Hx Substance Use: No - Immunization History Hx Tetanus Toxoid Vaccination: No Hx Influenza Vaccination: No Hx Pneumococcal Vaccination: No Review Of Systems Except As Marked, All Systems Reviewed And Found Negative. Constitutional: Negative for: Fever Gastrointestinal: Negative for: Nausea, Vomiting, Abdominal Pain, Diarrhea Genitourinary: Positive for: Dysuria, Vaginal Discharge (Whitish in nature). Negative for: Hematuria, Vaginal Bleeding Musculoskeletal: Negative for: Back Pain Neurological: Negative for: Weakness, Numbness Physical Exam - Physical Exam Appears: Non-toxic, No Acute Distress Skin: Warm, Dry, No Rash Head: Atraumatic, Normacephalic Oral Mucosa: Moist Chest: Symmetrical, No Tenderness Cardiovascular: Rhythm Regular, No Murmur Respiratory: Normal Breath Sounds, No Rales, No Rhonchi, No Stridor, No Wheezing Pelvic: Other (Deferred) Extremity: Normal ROM, No Swelling Neurological/Psych: Oriented x3, Normal Speech, Normal Motor ED Course And Treatment O2 Sat by Pulse Oximetry: 100 Medical Decision Making Medical Decision Making: PLAN: * Diflucan PO * Oxycodone PO Disposition - Disposition Referrals: [facility] Osbaldo Sarahmarleni, [Non-Staff] - Disposition: HOME/ ROUTINE Disposition Time: 15:55 Condition: GOOD Additional Instructions: Thank you for letting us take care of you today. Your provider was Dr. Real. You were treated for vaginal discharge/discomfort. The emergency medical care you received today was directed at your acute symptoms. If you were prescribed any medication, please fill it and take as directed. It may take several days for your symptoms to resolve. Return to the Emergency Department if your symptoms worsen, do not improve, or if you have any other problems. Please contact your doctor or call one of the physicians/clinics you have been referred to that are listed on the Patient Visit Information form that is included in your discharge packet. Bring any paperwork you were given at discharge with you along with any medications you are taking to your follow up visit. Our treatment cannot replace ongoing medical care by a primary care provider (PCP) outside of the emergency department. Thank you for allowing the [facility] team to be part of your care today. Follow up with your CANCER REGISTRY COORDINATOR doctor as scheduled tomorrow. Prescriptions: Fluconazole [Diflucan] 150 mg PO ONCE #1 tab Miconazole 2% Vaginal [Monistat 7 Vaginal Cream] 7 applic VG HS #7 tube Phenazopyridine HCl [Pyridium] 100 mg PO TID #6 tablet Instructions: Vulvovaginal Candidiasis (ED), Vaginitis (ED) - Clinical Impression Clinical Impression: Vulvovaginal candidiasis - Scribe Statement The provider has reviewed the documentation as recorded by the Cecilia Blackmon Provider Attestation: All medical record entries made by the Cecilia were at my direction and personally dictated by me. I have reviewed the chart and agree that the record accurately reflects my personal performance of the history, physical exam, medical decision making, and the department course for this patient. I have also personally directed, reviewed, and agree with the discharge instructions and disposition.
== END 2017-02-25 17:20 | disposition home or self-care (01) ==
LOC: C.ER 15:05
DX: B37.3 Candidiasis of vulva and vagina (principal)

== ENCOUNTER 2017-03-02 20:54 | Emergency (ER) | payer OTHER ==
[2017-03-02 20:54] VITALS: BMI 24.8
[2017-03-02 21:13] VITALS: BP 123/81; PULSE 88; RESP 20; TEMP 98.3; O2SAT 98
[2017-03-02] MEDS: Sodium Chloride 0.9% 1,000 ML IV ONE ×2 (21:40→22:07)
[2017-03-02] MEDS ORDERED: Sodium Chloride 0.9% 1,000 ML ONE (21:41)
[2017-03-02 21:44] LABS: BASO # 0.1 K/uL (0.0-0.2); BASO % 1.2 % (0.0-2.0); EOS # 0.3 K/uL (0.0-0.7); EOS % 3.8 % (0.0-4.0); HEMOGLOBIN 11.3 g/dL (11.0-16.0); LYMPH % 28.5 % (20.0-40.0); MEAN CELL VOLUME 84.8 fL (81.0-99.0); MEAN CORPUSCULAR HEMOGLOBIN 28.7 pg (27.0-31.0); MEAN CORPUSCULAR HGB CONC 33.8 g/dL (33.0-37.0); MONO # 0.5 K/uL (0.0-0.8); MONO % 6.7 % (0.0-10.0); NEUT # 4.2 K/uL (1.8-7.0); NEUT % 59.8 % (50.0-75.0); RBC 3.95 Mil/uL (3.80-5.20); RED CELL DISTRIBUTION WIDTH 13.8 % (11.5-14.5); WHITE BLOOD COUNT 7.1 K/uL (4.8-10.8)
[2017-03-02 21:45] LABS: HCG,QUALITATIVE URINE NEGATIVE (NEGATIVE)
[2017-03-02 21:49] LABS: SQUAMOUS EPITHIAL 4 /hpf (0-5); URINE BACTERIA OCC (<OCC); URINE BILIRUBIN NEGATIVE (NEGATIVE); URINE BLOOD 3+ (NEGATIVE); URINE COLOR Yellow (YELLOW); URINE GLUCOSE (UA) NORMAL (Normal); URINE NITRATE NEGATIVE (NEGATIVE); URINE PROTEIN 2+ mg/dL (NEGATIVE); URINE UROBILINOGEN NORMAL mg/dL (0.2-1.0)
[2017-03-02 21:50] LABS: URINE CLARITY Hazy (Clear); URINE LEUKOCYTE ESTERASE 2+ Leu/uL (Negative)
[2017-03-02 21:54] LABS: ALBUMIN 3.7 g/dL (3.5-5.0)
[2017-03-02 21:56] LABS: BARBITURATES, UR NEGATIVE (NEGATIVE); GFR AFRICAN-AMERICAN > 60; GFR NON-AFRICAN AMERICAN > 60
[2017-03-02 21:57] LABS: ALB/GLOB RATIO 1.5 (1.0-2.1); ALT/SGPT 23 U/L (9-52); AST/SGOT 14 U/L (14-36); BENZODIAZEPINES, UR NEGATIVE (NEGATIVE); BLOOD UREA NITROGEN 11 mg/dL (7-17); LIPASE 67 U/L (23-300)
[2017-03-02 21:59] LABS: OPIATES, UR NEGATIVE (NEGATIVE)
[2017-03-02 22:00] LABS: PHENCYCLIDINE, UR NEGATIVE (NEGATIVE)
--- NOTE | 2017-03-02 22:10 | C.PDOC ---
Time Seen by Provider: 03/02/17 21:20 Chief Complaint (Nursing): Abdominal Pain History Per: Patient Onset/Duration Of Symptoms: Hrs (since this morning) Current Symptoms Are (Timing): Still Present Severity: Moderate Location Of Pain/Discomfort: RLQ Radiation Of Pain To:: Back Associated Symptoms: Back Pain, Urinary Symptoms (?) Alleviating Factors: None Additional History Per: Prior Records Past Medical History Reviewed: Historical Data, Nursing Documentation, Vital Signs Vital Signs: Last Vital Signs Temp 98.3 F 03/02/17 21:06 Pulse 88 03/02/17 21:06 Resp 20 03/02/17 21:06 BP 123/81 03/02/17 21:06 Pulse Ox 98 03/02/17 22:10 - Medical History PMH: Anemia, Anxiety, Crohn's Disease, Diabetes, Fractures (RIGHT HAND-CASTED ONLY), Kidney Stones, Personality Disorder, Chronic Kidney Disease Surgical History: Appendectomy, Cholecystectomy Other Surgeries: Recent Myomectomy Family History: States: Unknown Family Hx - Social History Hx Tobacco Use: Yes Hx Alcohol Use: No Hx Substance Use: No - Immunization History Hx Tetanus Toxoid Vaccination: No Hx Influenza Vaccination: No Hx Pneumococcal Vaccination: No Review Of Systems Except As Marked, All Systems Reviewed And Found Negative. Constitutional: Negative for: Fever, Weakness Cardiovascular: Negative for: Chest Pain Respiratory: Negative for: Shortness of Breath Gastrointestinal: Positive for: Abdominal Pain. Negative for: Vomiting, Diarrhea Genitourinary: Negative for: Vaginal Bleeding Musculoskeletal: Negative for: Neck Pain Skin: Negative for: Rash Neurological: Negative for: Weakness, Numbness, Seizures, Altered Mental Status Physical Exam - Physical Exam Appears: Non-toxic, No Acute Distress Skin: Normal Color, Warm, Dry, No Rash Head: Atraumatic, Normacephalic Eye(s): bilateral: Normal Inspection, PERRL, EOMI Neck: Normal ROM, Supple Cardiovascular: Rhythm Regular Respiratory: Normal Breath Sounds, No Accessory Muscle Use Gastrointestinal/Abdominal: Soft, Tenderness (RLQ), No Guarding, No Rebound Back: No CVA Tenderness Extremity: Normal ROM Neurological/Psych: Oriented x3, Normal Motor, Normal Sensation ED Course And Treatment - Laboratory Results Result Diagrams: 03/02/17 21:39 03/02/17 21:39 Interpretation Of Abnormal: Hematuria? Urine POC: Negative O2 Sat by Pulse Oximetry: 98 Pulse Ox Interpretation: Normal Progress Note: I had ordered a CT scan of the abdomen/pelvis, but I was informed by the staff that the pt walked out during evaluation and before going to CT scan. Disposition - Disposition Disposition: ELOPEMENT - ER ONLY Disposition Time: 22:15 Condition: UNKNOWN - Clinical Impression Clinical Impression: Patient left before treatment completed, Abdominal pain
== END 2017-03-02 22:18 | disposition left against medical advice (07) ==
LOC: C.ER 20:54
DX: R10.31 Right lower quadrant pain (principal)
CPT/HCPCS: 80053; 80324; 80345; 80346; 80349; 80353; 80358; 80361; 81001; 83690; 83992; 84703; 85025; 87086; 96374; 99284; J2765; J7040

== ENCOUNTER 2017-03-02 23:20 | Emergency (ER) | payer OTHER ==
[2017-03-02 23:20] VITALS: BMI 24.8
[2017-03-03] MEDS ORDERED: Morphine 4 MG/ML VIAL ONE (00:11)
--- NOTE | 2017-03-03 01:11 | CT ---
EXAM: CT Abdomen and Pelvis Without Intravenous Contrast CLINICAL HISTORY: 31 years old, female; Pain; Abdominal pain; Flank; Right; Additional info: Rlq/right flank pain TECHNIQUE: Axial computed tomography images of the abdomen and pelvis without intravenous contrast. This CT exam was performed using one or more of the following dose reduction techniques: automated exposure control, adjustment of the mA and/or kV according to patient size, and/or use of iterative reconstruction technique. Coronal and sagittal reformatted images were created and reviewed. COMPARISON: CT - ABD PELVIS W/O PO OR IV CONT 12/01/2015 10:20:11 PM FINDINGS: Lower thorax: The bilateral lung bases are clear. ABDOMEN: Liver: No acute findings Gallbladder and bile ducts: The gallbladder surgically absent. No intra-extrahepatic biliary ductal dilation. Pancreas: Limited evaluation secondary to the lack of intravenous contrast. Spleen: No acute findings. Adrenals: No acute findings. Kidneys and ureters: Moderate right-sided hydroureteronephrosis secondary to a 6 mm stone within the distal ureter. 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 No left-sided hydronephrosis is present. PELVIS: Bladder: No acute findings. Reproductive: No acute findings. Appendix: The appendix is not definitively visualized, however no pericecal inflammatory changes identified to suggest the presence of acute appendicitis. ABDOMEN and PELVIS: Stomach and bowel: No acute findings. Peritoneum: No acute findings. Lymph nodes: Limited evaluation without intravenous contrast. Vasculature: No aortic aneurysm. Bones: No acute fracture. IMPRESSION: Moderate right-sided hydroureteronephrosis secondary to a 6 mm stone in the distal right ureter.
[2017-03-03] MEDS ORDERED: Oxycodone/Acetaminophen 5/325 mg Tab PO STA (01:28)
[2017-03-03] MEDS ORDERED: Tmp-Smz 800 mg-160 mg DS Tab PO STA (01:28)
[2017-03-03] MEDS ORDERED: Oxycodone/Acetaminophen 5/325 mg Tab ONE (01:32)
[2017-03-03] MEDS ORDERED: Tmp-Smz 800 mg-160 mg DS Tab ONE (01:32)
[2017-03-03] MEDS ORDERED: Aluminum Hydroxide/Magnesium Hydroxide Susp (30 mL) PO ONE (01:44)
[2017-03-03] MEDS ORDERED: Aluminum Hydroxide/Magnesium Hydroxide Susp (30 mL) ONE (01:44)
--- NOTE | 2017-03-03 01:56 | C.PDOC ---
History Of Present Illness I saw this pt earlier today. She had eloped and now she came back. I will continue the workup by re-ordering the CT scan of abd/pelvis. Time Seen by Provider: 03/03/17 00:01 Chief Complaint (Nursing): Abdominal Pain History Per: Patient Onset/Duration Of Symptoms: Hrs Current Symptoms Are (Timing): Still Present Severity: Severe Location Of Pain/Discomfort: Other (Right flank) Radiation Of Pain To:: Back, Flank Quality Of Discomfort: "Pain" Associated Symptoms: Nausea Exacerbating Factors: None Alleviating Factors: None Additional History Per: Prior Records Abnormal Vaginal Bleeding: No Past Medical History Reviewed: Historical Data, Nursing Documentation, Vital Signs Vital Signs: Last Vital Signs Temp 98.1 F 03/02/17 23:28 Pulse 96 H 03/02/17 23:28 Resp 18 03/02/17 23:28 BP 128/92 H 03/02/17 23:28 Pulse Ox 96 03/02/17 23:28 - Medical History PMH: Anemia, Anxiety, Crohn's Disease, Diabetes, Fractures (RIGHT HAND-CASTED ONLY), Gall Bladder Disease, Kidney Stones, Personality Disorder, Chronic Kidney Disease Surgical History: Appendectomy, Cholecystectomy Family History: States: Unknown Family Hx - Social History Hx Tobacco Use: Yes Hx Alcohol Use: No Hx Substance Use: No - Immunization History Hx Tetanus Toxoid Vaccination: No Hx Influenza Vaccination: No Hx Pneumococcal Vaccination: No Review Of Systems Except As Marked, All Systems Reviewed And Found Negative. Constitutional: Negative for: Fever Cardiovascular: Negative for: Chest Pain Respiratory: Negative for: Shortness of Breath Gastrointestinal: Positive for: Abdominal Pain Musculoskeletal: Positive for: Back Pain. Negative for: Neck Pain Skin: Negative for: Rash Neurological: Negative for: Weakness, Numbness, Seizures, Altered Mental Status Physical Exam - Physical Exam Appears: No Acute Distress, Other (Uncomfortable) Skin: Normal Color, Warm, Dry, No Rash Head: Atraumatic, Normacephalic Eye(s): bilateral: Normal Inspection, PERRL, EOMI Neck: Normal ROM, Supple Cardiovascular: Rhythm Regular Respiratory: Normal Breath Sounds, No Accessory Muscle Use Gastrointestinal/Abdominal: Soft, Tenderness (mild right side), No Guarding, No Rebound Back: No CVA Tenderness Extremity: Normal ROM Neurological/Psych: Oriented x3, Normal Motor, Normal Sensation ED Course And Treatment O2 Sat by Pulse Oximetry: 96 Pulse Ox Interpretation: Normal - CT Scan/US CT abd/pelv. Other Rad Studies (CT/US): Read By Radiologist, Radiology Report Reviewed CT/US Interpretation: IMPRESSION: . Moderate right-sided hydroureteronephrosis secondary to a 6 mm stone in the. distal right ureter. Reassessment Condition: Improved Disposition Counseled Patient/Family Regarding: Studies Performed, Diagnosis, Need For Followup, Rx Given, Smoking Cessation - Disposition Referrals: Suleiman Sorenson MD [Staff Provider] - Raf Marte DO [Staff Provider] - Disposition Time: 01:57 Condition: IMPROVED Additional Instructions: Drink plenty of fluids. Follow up with your doctor within 1-2 days. Follow up with a Urologist this week for further evaluation and treatment. Return to the ER if you develop fever, not tolerating fluids, trouble urinating, worsening of symptoms or if you have any other concerns. Prescriptions: oxyCODONE/Acetaminophen [Percocet 5/325 mg Tab] 1 tab PO QID PRN #20 tab PRN Reason: Pain Sulfamethoxazole/Trimethoprim [Bactrim DS 800 mg-160 mg] 1 tab PO BID #14 tab Tamsulosin [Flomax] 0.4 mg PO HS #7 cap Instructions: Renal Colic (ED) - Clinical Impression Clinical Impression: Right distal ureteral calculus
[2017-03-03 02:22] VITALS: BP 100/60; PULSE 71; RESP 14; TEMP 98; O2SAT 97
== END 2017-03-03 02:20 | disposition home or self-care (01) ==
LOC: C.ER 23:20
DX: N13.2 Hydronephrosis with renal and ureteral calculous obstruction (principal)
CPT/HCPCS: 74176; 96372; 99284; J2270

== ENCOUNTER 2017-04-07 15:08 | Emergency (ER) | payer OTHER ==
[2017-04-07 15:09] VITALS: BMI 24.8
[2017-04-07 15:16] VITALS: BP 110/77; PULSE 102; RESP 16; TEMP 98.8; O2SAT 98
[2017-04-07 16:29] LABS: RBC URINE < 1 /hpf (0-3); URINE BACTERIA RARE (<OCC); URINE BILIRUBIN NEGATIVE (NEGATIVE); URINE BLOOD NEGATIVE (NEGATIVE); URINE COLOR Yellow (YELLOW); URINE GLUCOSE (UA) NORMAL (Normal); URINE KETONE NEGATIVE (NEGATIVE); URINE LEUKOCYTE ESTERASE 2+ Leu/uL (Negative); URINE PROTEIN NEGATIVE (NEGATIVE); URINE UROBILINOGEN NORMAL mg/dL (0.2-1.0); WBC URINE 7 /hpf (0-5)
--- NOTE | 2017-04-07 16:42 | C.PDOC ---
History Of Present Illness 32 y/o F c PMHx Crohn's disease, medullary sponge kidney, fibroids p/w body aches, subjective fever, sore throat, and bilateral ear pain since this morning. Patient states that she had the same symptoms 1 week prior and was called in a prescription for amoxicillin by her PMD, which she finished. She states she felt well over the weekend but woke up with these symptoms this morning. She states she has another prescription for amoxicillin called in for her today but can not be seen in doctor's office for several more days. Denies vomiting, diarrhea, dysuria, dyspnea, abdominal pain. Time Seen by Provider: 04/07/17 15:36 Chief Complaint (Nursing): Flu-like Symptoms History Per: Patient History/Exam Limitations: no limitations Onset/Duration Of Symptoms: Sudden Onset (Since morning) Current Symptoms Are (Timing): Still Present Past Medical History Reviewed: Historical Data, Nursing Documentation, Vital Signs Vital Signs: Last Vital Signs Temp 98.8 F 04/07/17 15:12 Pulse 102 H 04/07/17 15:12 Resp 16 04/07/17 15:12 BP 110/77 04/07/17 15:12 Pulse Ox 98 04/07/17 16:44 - Medical History PMH: Anemia, Anxiety, Crohn's Disease, Diabetes, Fractures (RIGHT HAND-CASTED ONLY), Gall Bladder Disease, Kidney Stones, Personality Disorder, Chronic Kidney Disease Surgical History: Appendectomy, Cholecystectomy Family History: States: No Known Family Hx - Social History Hx Tobacco Use: Yes Hx Alcohol Use: No Hx Substance Use: No - Immunization History Hx Tetanus Toxoid Vaccination: No Hx Influenza Vaccination: No Hx Pneumococcal Vaccination: No Review Of Systems Except As Marked, All Systems Reviewed And Found Negative. Constitutional: Positive for: Fever (Subjective), Other ((+) Body aches) ENT: Positive for: Ear Pain (Bilateral ), Throat Pain (Sore throat ) Cardiovascular: Negative for: Chest Pain Respiratory: Negative for: Shortness of Breath Gastrointestinal: Negative for: Vomiting, Abdominal Pain, Diarrhea Genitourinary: Negative for: Dysuria Physical Exam - Physical Exam Additional Physical Exam Comments: Constitutional: No acute distress. Head: Normocephalic. Atraumatic. Eyes: PERRL. ENT: Moist mucous membranes. Ears: (+) Right TM obscured by cerumen. Left TM normal. Throat: (+) Pharyngeal erythema without exudates. Neck: Supple. Cardiovascular: Regular rate. Radial pulses 2+ bilaterally. Chest: No tenderness. Respiratory: Clear to auscultation bilaterally. GI: Soft. Nontender. Nondistended. Back: No CVA tenderness. Musculoskeletal: No tenderness or swelling of extremities. Skin: No rash. Neurologic: Alert, no focal deficit. ED Course And Treatment O2 Sat by Pulse Oximetry: 98 (RA ) Pulse Ox Interpretation: Normal Medical Decision Making Medical Decision Making: Patient's symptoms consistent with viral illness. Recently finished antibiotics. UA shows WBCs and leukocyte esterase. Will send culture and have patient begin and finished amoxicllin which she already has. Otherwise, PO fluids, ibuprofen/acetaminophen. F/u PMD, return to ER for worsening pain, dyspnea, vomiting, stiff neck, or any other problem. Disposition - Disposition Referrals: Raf Marte DO [Staff Provider] - Disposition: HOME/ ROUTINE Disposition Time: 16:43 Condition: STABLE Prescriptions: Acetaminophen [Tylenol 325mg tab] 2 tab PO Q4H #30 tab Instructions: Viral Syndrome (ED) Forms: [employer] (Serbian) - Clinical Impression Clinical Impression: Influenza-like illness - Scribe Statement The provider has reviewed the documentation as recorded by the Marlynibtapan Blackmon Provider Attestation: All medical record entries made by the Scribe were at my direction and personally dictated by me. I have reviewed the chart and agree that the record accurately reflects my personal performance of the history, physical exam, medical decision making, and the department course for this patient. I have also personally directed, reviewed, and agree with the discharge instructions and disposition.
== END 2017-04-07 16:54 | disposition home or self-care (01) ==
LOC: C.ER 15:08
DX: J11.1 Influenza due to unidentified influenza virus with other respiratory manifestations (principal); Z72.0 Tobacco use

== ENCOUNTER 2017-04-13 16:31 | Emergency (ER) | payer OTHER ==
[2017-04-13 16:32] VITALS: BMI 24.8
[2017-04-13 16:41] VITALS: PULSE 72
--- NOTE | 2017-04-13 17:10 | C.PDOC ---
History Of Present Illness 32-year-old female presents to the ED for evaluation of rectal itching which began around 1 week ago. Patient notes the itchiness occurs mostly at night and reports it is associated with rectal "discharge that is a yellow/green color" . Patient denies fever, chills, recent illness, headache, dizziness, weakness, CP , SOB, dyspnea, diaphoresis, palpitation, abdominal pain, nausea, vomiting, changes in appetite or bowel movements, UTI sx, Ambulate to Ed for evaluation, nt in any apparent distress.. Time Seen by Provider: 04/13/17 16:47 Chief Complaint (Nursing): Abnormal Skin Integrity History Per: Patient History/Exam Limitations: no limitations Onset/Duration Of Symptoms: Other (1 week ) Current Symptoms Are (Timing): Still Present Quality Of Symptoms: Itching, Draining Additional History Per: Patient Past Medical History Reviewed: Historical Data, Nursing Documentation, Vital Signs Vital Signs: Last Vital Signs Temp 98.2 F 04/13/17 18:54 Pulse 72 04/13/17 18:54 Resp 18 04/13/17 18:54 BP 110/65 04/13/17 18:54 Pulse Ox 98 04/13/17 18:54 - Medical History PMH: Anemia, Anxiety, Crohn's Disease, Diabetes, Fractures (RIGHT HAND-CASTED ONLY), Gall Bladder Disease, Kidney Stones, Personality Disorder, Chronic Kidney Disease Surgical History: Appendectomy, Cholecystectomy Family History: States: Unknown Family Hx - Social History Hx Tobacco Use: Yes Hx Alcohol Use: No Hx Substance Use: No - Immunization History Hx Tetanus Toxoid Vaccination: No Hx Influenza Vaccination: No Hx Pneumococcal Vaccination: No Review Of Systems Constitutional: Negative for: Fever, Chills Gastrointestinal: Positive for: Other (+rectal itching associated with yellow/ green discharge ). Negative for: Nausea, Vomiting, Abdominal Pain, Diarrhea, Constipation Physical Exam - Physical Exam Appears: Well, Non-toxic, No Acute Distress Skin: Normal Color, Warm, Dry, No Rash, Other (superficial linear scratches noted to Right gluteus.) Eye(s): bilateral: PERRL Nose: No Flaring Oral Mucosa: Moist, No Drooling Tongue: Normal Appearing Lips: Normal Appearing Throat: No Exudate, No Drooling Neck: Supple Cardiovascular: Rhythm Regular Respiratory: No Decreased Breath Sounds, No Accessory Muscle Use, No Stridor, No Wheezing Gastrointestinal/Abdominal: Soft, No Tenderness, No Distention, No Guarding, No Rebound Rectal: Rectal Tone (goot), Heme Negative, No Hemorrhoids, No Mass, No Tenderness, Other ((-) lesions) Back: No CVA Tenderness Extremity: Normal ROM, No Pedal Edema, No Deformity Neurological/Psych: Oriented x3, Normal Speech ED Course And Treatment O2 Sat by Pulse Oximetry: 100 (on RA) Pulse Ox Interpretation: Normal Progress Note: On re-evaluation, pt is AAO#3, not in any apparent distress. Afebrile, hemodynamicaly stable. Non-toxic. Ambulatory in ED with stable gait. ENT: no acute findings. neck: Supple. Lungs: CTA B/L, BS equal B/L. ABd: benitgn, (-)guarding, (-) rebound. Rectal exam: no acute findings, good rectal tone. Back: (-) CVA tenderness. Case discussed with ED attending , recommend Albendazole with Anusol HC, discharge with outpt f/u at present time. Pt advised and Ref. to F/u with PMD, GI in 1-2 days for re-eval. return to ED if any worsening or new changes. Disposition Counseled Patient/Family Regarding: Diagnosis, Need For Followup - Disposition Referrals: Raf Marte DO [Staff Provider] - Brent Judd MD [Staff Provider] - Disposition: HOME/ ROUTINE Disposition Time: 17:43 Condition: STABLE Additional Instructions: Use topical cream as prescribed for rectal itchiness Benadryl PO as need for itchiness Follow up with PMD, GI in 1-2 days for re-evaluation. Return to ED if any worsening or new changes. Prescriptions: Bisacodyl [Dulcolax] 5 mg PO DAILY #10 tablet. Hydrocortisone 2.5% (Rectal) [Anusol-HC] 30 applic [place] BID #1 tube Instructions: Constipation (ED), Rectal Pain (ED) Forms: [facility] (Maltese) - Clinical Impression Clinical Impression: Rectal irritation, Constipation - PA / RAPID TRANSIT OPERATOR / Resident Statement / has reviewed & agrees with the documentation as recorded. - Scribe Statement The provider has reviewed the documentation as recorded by the Scribe (Tasha Bazan) All medical record entries made by the Scribe were at my direction and personally dictated by me. I have reviewed the chart and agree that the record accurately reflects my personal performance of the history, physical exam, medical decision making, and the department course for this patient. I have also personally directed, reviewed, and agree with the discharge instructions and disposition.
[2017-04-13 18:55] VITALS: BP 110/65; RESP 18; TEMP 98.2
[2017-04-16 18:18] VITALS: O2SAT 100
== END 2017-04-13 18:55 | disposition home or self-care (01) ==
LOC: C.ER 16:31
DX: K59.00 Constipation, unspecified (principal); K62.89 Other specified diseases of anus and rectum

== ENCOUNTER 2017-04-25 20:11 | Emergency (ER) | payer OTHER ==
[2017-04-25 20:12] VITALS: BMI 24.8
[2017-04-25 21:07] VITALS: BP 117/78; PULSE 68; RESP 15; TEMP 98; O2SAT 98
[2017-04-25 21:25] LABS: RBC URINE 111 /hpf (0-3); TRANSITIONAL EPITHIAL < 1 /hpf (0-3); URINE BACTERIA OCC (<OCC); URINE BILIRUBIN NEGATIVE (NEGATIVE); URINE BLOOD 3+ (NEGATIVE); URINE COLOR YELLOW (YELLOW); URINE GLUCOSE (UA) NORMAL (Normal); URINE KETONE NEGATIVE (NEGATIVE); URINE LEUKOCYTE ESTERASE 3+ Leu/uL (Negative); URINE PROTEIN NEGATIVE (NEGATIVE); URINE UROBILINOGEN NORMAL mg/dL (0.2-1.0); WBC URINE 35 /hpf (0-5)
--- NOTE | 2017-04-25 21:42 | C.PDOC ---
History Of Present Illness 32 y/o female c/o blisters in vagina area that pop when she wipes after urinating, sts she has had them before. +vaginal itch. denies discharge. no hx herpes. no fever or chills, no abdominal pain. Time Seen by Provider: 04/25/17 20:48 Chief Complaint (Nursing): Female Genitourinary History Per: Patient History/Exam Limitations: no limitations Current Symptoms Are (Timing): Still Present Quality Of Discomfort: "Pain" Associated Symptoms: denies: Fever, Chills, Vomiting Recent travel outside of the [place]: No Additional History Per: Prior Records Past Medical History Reviewed: Historical Data, Nursing Documentation, Vital Signs Vital Signs: Last Vital Signs Temp 98 F 04/25/17 21:00 Pulse 68 04/25/17 21:00 Resp 15 04/25/17 21:00 BP 117/78 04/25/17 21:00 Pulse Ox 98 05/04/17 21:36 - Medical History PMH: Anemia, Anxiety, Crohn's Disease, Diabetes, Fractures (RIGHT HAND-CASTED ONLY), Gall Bladder Disease, Kidney Stones, Personality Disorder, Chronic Kidney Disease Surgical History: Appendectomy, Cholecystectomy Family History: States: Unknown Family Hx - Social History Hx Tobacco Use: Yes Hx Alcohol Use: No Hx Substance Use: No - Immunization History Hx Tetanus Toxoid Vaccination: No Hx Influenza Vaccination: No Hx Pneumococcal Vaccination: No Review Of Systems Constitutional: Negative for: Fever, Chills Cardiovascular: Negative for: Chest Pain Respiratory: Negative for: Shortness of Breath Gastrointestinal: Negative for: Abdominal Pain Genitourinary: Positive for: Dysuria. Negative for: Frequency, Vaginal Discharge, Vaginal Bleeding Physical Exam - Physical Exam Appears: Non-toxic, No Acute Distress Skin: Warm, Dry Head: Atraumatic, Normacephalic Eye(s): bilateral: Normal Inspection, PERRL, EOMI Chest: Symmetrical, No Deformity Cardiovascular: Rhythm Regular, No Murmur Respiratory: Normal Breath Sounds, No Accessory Muscle Use Gastrointestinal/Abdominal: Bowel Sounds, Soft, No Tenderness Pelvic: Other (few scattered erythematous patches to external labia. no vesicles noted, no vag discharge noted. ) Neurological/Psych: Oriented x3, Normal Speech, Normal Cognition ED Course And Treatment O2 Sat by Pulse Oximetry: 98 (room air ) Medical Decision Making Medical Decision Making: pt with vaginal itch, erythema and itch to external labia with elevated wbc inurine, will tx for candid and uti. Disposition - Disposition Referrals: Saud Mccormick MD [Staff Provider] - Disposition: HOME/ ROUTINE Disposition Time: 22:37 Condition: STABLE Additional Instructions: Take antibiotics as directed. Drink increased fluids. Apply bacitracin to itchy irritated areas of vagina. Follow up with your painting and coating worker next week. Prescriptions: Bacitracin Ointment [Bacitracin] 30 gm TOP BID #1 tube Fluconazole [Diflucan] 150 mg PO ONCE #1 tab Nitrofurantoin Macrocrystals [Macrobid] 100 mg PO BID #14 cap Instructions: Urinary Tract Infection in Women (ED) Forms: [facility] (Gabonese), General Discharge Instructions - Clinical Impression Clinical Impression: UTI (urinary tract infection), Vaginal irritation - PA / CHANNEL CEMENTER OUTSOLE MACHINE / Resident Statement MD/DO has reviewed & agrees with the documentation as recorded. - Scribe Statement The provider has reviewed the documentation as recorded by the Scribe
== END 2017-04-25 22:55 | disposition home or self-care (01) ==
LOC: C.ER 20:11
DX: N39.0 Urinary tract infection, site not specified (principal); N89.8 Other specified noninflammatory disorders of vagina

== ENCOUNTER 2017-05-18 07:40 | Emergency (ER) | payer OTHER ==
[2017-05-18 07:40] VITALS: BMI 24.8
[2017-05-18] MEDS ORDERED: Lidocaine 75 MG in Sodium Chloride 0.9% 100 ML IV STA (08:00)
[2017-05-18] MEDS ORDERED: Sodium Chloride 0.9% 1,000 ML IV STA (08:00)
--- NOTE | 2017-05-18 08:00 | C.PDOC ---
Time Seen by Provider: 05/18/17 07:57 Chief Complaint (Nursing): Abdominal Pain Past Medical History Vital Signs: Last Vital Signs Temp 98.5 F 05/18/17 07:46 Pulse 95 H 05/18/17 07:46 Resp 16 05/18/17 07:46 BP 149/99 H 05/18/17 07:46 Pulse Ox 100 05/18/17 07:46 - Medical History PMH: Anemia, Anxiety, Crohn's Disease, Diabetes, Fractures (RIGHT HAND-CASTED ONLY), Gall Bladder Disease, Kidney Stones, Personality Disorder, Chronic Kidney Disease Surgical History: Appendectomy, Cholecystectomy Family History: States: Unknown Family Hx - Social History Hx Tobacco Use: Yes Hx Alcohol Use: No Hx Substance Use: No - Immunization History Hx Tetanus Toxoid Vaccination: No Hx Influenza Vaccination: No Hx Pneumococcal Vaccination: No ED Course And Treatment O2 Sat by Pulse Oximetry: 100 Disposition - Disposition
[2017-05-18] MEDS ORDERED: Lidocaine 75 MG in Sodium Chloride 0.9% 100 ML IV ONE (08:15)
[2017-05-18] MEDS ORDERED: Sodium Chloride 0.9% 1,000 ML ONE (08:17)
[2017-05-18 08:19] LABS: BASO # 0.1 K/uL (0.0-0.2); BASO % 1.1 % (0.0-2.0); EOS # 0.3 K/uL (0.0-0.7); EOS % 3.9 % (0.0-4.0); HEMATOCRIT 38.7 % (34.0-47.0); LYMPH # 1.8 K/uL (1.0-4.3); LYMPH % 26.9 % (20.0-40.0); MEAN CORPUSCULAR HEMOGLOBIN 28.2 pg (27.0-31.0); MEAN CORPUSCULAR HGB CONC 33.6 g/dL (33.0-37.0); MEAN PLATELET VOLUME 9.4 fL (7.2-11.7); MONO # 0.5 K/uL (0.0-0.8); MONO % 8.4 % (0.0-10.0); NRBC % 0.1 % (0.0-2.0); RED CELL DISTRIBUTION WIDTH 13.3 % (11.5-14.5); WHITE BLOOD COUNT 6.5 K/uL (4.8-10.8)
--- NOTE | 2017-05-18 08:19 | C.PDOC ---
History Of Present Illness 32 year old female, PMHx includes Anemia, Anxiety, Crohn's Disease, Diabetes, Endometriosis, Gall Bladder Disease, Kidney Stones, Personality Disorder, Chronic Kidney Disease, presents to the ED for evaluation of a possible kidney stone. Patient states, " I think I have a recurring kidney stone." Patient states she awoke with right groin pain with radiating to right flank. Patient notes symptoms are similar to prior. Patient also reports nausea. Patient is status post Flomax prior to arrival. She denies fever. Patient has past surgical history of appendectomy, cholecystectomy, and hernia. "I THINK I HAVE RECUR KIDNEY STONE". AWOKE W R GROIN PAIN, RADIATION R FLANK SIM TO PRIOR. +NAUSEA. 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 NO FEVER. PSH APPY, TWILA, HERNIA PMHx includes Anemia, Anxiety, Crohn's Disease, Diabetes, Endometriosis, Gall Bladder Disease, Kidney Stones, Personality Disorder, Chronic Kidney Disease, EXAM MOD DIST NONTOXIC ABD SOFT NT ND NO R/G NO CVAT REMAINDER NEG Time Seen by Provider: 05/18/17 07:57 Chief Complaint (Nursing): Abdominal Pain History Per: Patient History/Exam Limitations: no limitations Onset/Duration Of Symptoms: Hrs Current Symptoms Are (Timing): Still Present Quality Of Discomfort: "Pain" Associated Symptoms: Nausea. denies: Fever Additional History Per: Patient Abnormal Vaginal Bleeding: No Past Medical History Reviewed: Historical Data, Nursing Documentation, Vital Signs Vital Signs: Last Vital Signs Temp 97.7 F 05/18/17 11:19 Pulse 67 05/18/17 11:19 Resp 20 05/18/17 11:19 BP 101/65 05/18/17 11:19 Pulse Ox 97 05/18/17 11:19 - Medical History PMH: Anemia, Anxiety, Crohn's Disease, Diabetes, Fractures (RIGHT HAND-CASTED ONLY), Gall Bladder Disease, Kidney Stones, Personality Disorder, Chronic Kidney Disease Surgical History: Appendectomy, Cholecystectomy Family History: States: Unknown Family Hx - Social History Hx Tobacco Use: Yes Hx Alcohol Use: No Hx Substance Use: No - Immunization History Hx Tetanus Toxoid Vaccination: No Hx Influenza Vaccination: No Hx Pneumococcal Vaccination: No Review Of Systems Constitutional: Negative for: Fever Gastrointestinal: Positive for: Nausea Musculoskeletal: Positive for: Other (right groin pain radiating to right flank ) Physical Exam - Physical Exam Appears: Non-toxic, Other (moderate distress) Skin: Normal Color, Warm, Dry Head: Atraumatic, Normacephalic Eye(s): bilateral: Normal Inspection Oral Mucosa: Moist Neck: Supple Chest: Symmetrical, No Deformity Cardiovascular: Rhythm Regular, No Murmur Respiratory: Normal Breath Sounds, No Rales, No Rhonchi, No Wheezing Gastrointestinal/Abdominal: Soft, No Tenderness, No Distention, No Guarding, No Rebound Back: No CVA Tenderness Extremity: Normal ROM, Capillary Refill (less than 2 seconds ) Neurological/Psych: Oriented x3, Normal Speech, Normal Cognition Gait: Steady ED Course And Treatment - Laboratory Results Result Diagrams: 05/18/17 08:16 05/18/17 08:16 O2 Sat by Pulse Oximetry: 100 (on RA) Pulse Ox Interpretation: Normal Progress Note: Labs, CT A/P ordered and reviewed. Amoxicillin PO, Flomax PO, Morphoine IV, IV fluids, Tylenol PO, Zofran IVP administered. Progress - Re-Evaluation Re-evaluation Note: 05/18/17 09:30 STILL CO PERSIST PAIN. PS DOES NOT WISH ADMISSION, REQUESTS ADDL PAIN MEDS AND POSSIBLE DC HOME. 05/18/17 10:03 D/W DR PARTIDA AWARE OF ER FINDINGS. AUGMENT, ZOSYN, PAIN MEDS, FU OFFICE TOMORROW 05/18/17 10:33 APEPARS COMFORTABLE IMPROVED FROM PRIOR - Data Reviewed Data Reviewed: Lab, Diagnostic imaging, Old records - Continuity of Care Discussed pt. case with senior talent management consultant/specialty: Urology Disposition Counseled Patient/Family Regarding: Studies Performed, Diagnosis, Need For Followup, Rx Given - Disposition Referrals: Gomez Partida MD [Staff Provider] - Disposition: HOME/ ROUTINE Disposition Time: 10:34 Condition: IMPROVED Prescriptions: Amoxicillin/Clavulanate [Augmentin 875 MG-125 MG] 1 tab PO BID #14 tab Metoclopramide [Reglan] 1 tab PO TID PRN #25 tab PRN Reason: Nausea/Vomiting oxyCODONE/Acetaminophen [Percocet 5/325 mg Tab] 1 tab PO QID PRN #14 tab PRN Reason: Pain Tamsulosin [Flomax] 0.4 mg PO DAILY #14 cap Instructions: Kidney Stones (ED) Forms: [employer] (Kinyarwanda) - Clinical Impression Clinical Impression: Nephrolithiasis - PA / BIOLOGY FACULTY MEMBER / Resident Statement MD/DO has reviewed & agrees with the documentation as recorded. - Scribe Statement The provider has reviewed the documentation as recorded by the Scribe (Tasha Bazan) Provider Attestation: All medical record entries made by the Scribe were at my direction and personally dictated by me. I have reviewed the chart and agree that the record accurately reflects my personal performance of the history, physical exam, medical decision making, and the department course for this patient. I have also personally directed, reviewed, and agree with the discharge instructions and disposition.
[2017-05-18 08:50] LABS: CHLORIDE 98 mmol/L (98-107); POTASSIUM 3.6 mmol/L (3.6-5.2); SODIUM 137 mmol/L (132-148)
[2017-05-18 08:52] LABS: ALB/GLOB RATIO 1.4 (1.0-2.1); ALKALINE PHOSPHATASE 82 U/L (38-126); AST/SGOT 28 U/L (14-36); BILIRUBIN,TOTAL 0.7 mg/dL (0.2-1.3); CARBON DIOXIDE 23 mmol/L (22-30); GFR AFRICAN-AMERICAN > 60; TOTAL PROTEIN 7.6 g/dL (6.3-8.3)
[2017-05-18 08:53] LABS: ALT/SGPT 40 U/L (9-52); BLOOD UREA NITROGEN 14 mg/dL (7-17); CALCIUM 9.1 mg/dl (8.6-10.4); GLUCOSE,RANDOM 86 mg/dL (65-105)
--- NOTE | 2017-05-18 09:09 | CT ---
PROCEDURE: CT Abdomen and Pelvis with Oral contrast. HISTORY: R FLANK PAIN S/P APPY, TWILA COMPARISON: 03/03/2017 TECHNIQUE: Contiguous axial images of the abdomen and pelvis. Oral contrast was administered. No IV contrast given. Coronal and Sagittal reformats generated. Radiation dose: Total exam DLP = 244 mGy-cm. This CT exam was performed using one or more of the following dose reduction techniques: Automated exposure control, adjustment of the mA and/or kV according to patient size, and/or use of iterative reconstruction technique. FINDINGS: LOWER THORAX: Lung mariee are unremarkable without infiltrate or effusion. Visualized distal esophagus is unremarkable. LIVER: Liver is normal in size and overall density. No intrahepatic ductal dilatation is seen. There is a small amount of hypodensity seen in the left lobe of the liver adjacent to the stomach more than likely related to artifact. There are 3 tiny calcifications along the medial aspect of the right lobe of the liver, nonspecific. GALLBLADDER AND BILE DUCTS: There is evidence of prior cholecystectomy. Common bile duct is normal in size for a post cholecystectomy patient of this age. PANCREAS: Unremarkable. No mass. No ductal dilatation. SPLEEN: Unremarkable. No splenomegaly. ADRENALS: Unremarkable. KIDNEYS AND URETERS: There is evidence of medullary sponge kidney, medullary calcinosis. There is evidence of a 6-7 millimeter distal obstructing right ureteral calculus. This is causing right hydronephrosis and mild perinephric change. No left ureteral calculi are noted. No bladder calculus is seen. It is uncertain as to whether this calculus is the same calculus seen on the prior examination BLADDER: Grossly unremarkable. REPRODUCTIVE: Uterus and adnexal regions are unchanged from prior study. APPENDIX: Removed by clinical history. No right lower quadrant inflammatory process is seen. Terminal ileum is unremarkable. BOWEL: No appreciable acute inflammatory process in the colon. No small bowel obstruction. PERITONEUM: No ascites is seen. Small ventral hernia with fat, and no bowel extending into this region. LYMPH NODES: Unremarkable. No enlarged lymph nodes. VASCULATURE: Unremarkable. No aortic aneurysm. BONES: No fracture or destructive lesion. OTHER FINDINGS: None. IMPRESSION: 6-7 millimeter obstructing distal right ureteral calculus causing mild right hydronephrosis. Medullary calcinosis. No appreciable acute inflammatory process elsewhere in the abdomen and pelvis.
[2017-05-18] MEDS ORDERED: Morphine 4 MG/ML VIAL IV ONE (09:25)
[2017-05-18] MEDS ORDERED: Morphine 4 MG/ML VIAL ONE (09:33)
[2017-05-18 09:40] LABS: RBC URINE 10 /hpf (0-3); URINE BACTERIA RARE (<OCC); URINE BILIRUBIN NEGATIVE (NEGATIVE); URINE BLOOD 1+ (NEGATIVE); URINE COLOR Straw (YELLOW); URINE GLUCOSE (UA) NORMAL (Normal); URINE KETONE NEGATIVE (NEGATIVE); URINE LEUKOCYTE ESTERASE 3+ Leu/uL (Negative); URINE PROTEIN NEGATIVE (NEGATIVE); URINE UROBILINOGEN NORMAL mg/dL (0.2-1.0); WBC URINE 34 /hpf (0-5)
[2017-05-18] MEDS ORDERED: Amoxicillin-Clav 875-125 mg Tab PO STA (10:31)
[2017-05-18] MEDS ORDERED: Amoxicillin-Clav 875-125 mg Tab PO ONE (11:18)
[2017-05-18 11:20] VITALS: BP 101/65; PULSE 67; RESP 20; TEMP 97.7
[2017-05-20 16:36] VITALS: O2SAT 100
== END 2017-05-18 11:41 | disposition home or self-care (01) ==
LOC: C.ER 07:40
DX: N20.0 Calculus of kidney (principal); E11.22 Type 2 diabetes mellitus with diabetic chronic kidney disease; N18.9 Chronic kidney disease, unspecified
CPT/HCPCS: 74176; 80053; 81001; 85025; 96361; 96374; 96375; 99285; J2001; J2270; J2405; J7040

== ENCOUNTER 2017-06-07 08:41 | Inpatient (IN) | payer OTHER ==
[2017-06-07 08:42] VITALS: BMI 24.8
[2017-06-07 09:42] LABS: RBC URINE 14 /hpf (0-3); URINE BACTERIA RARE (<OCC); URINE BILIRUBIN NEGATIVE (NEGATIVE); URINE BLOOD 1+ (NEGATIVE); URINE COLOR Yellow (YELLOW); URINE GLUCOSE (UA) NORMAL (Normal); URINE KETONE NEGATIVE (NEGATIVE); URINE LEUKOCYTE ESTERASE 3+ Leu/uL (Negative); URINE PROTEIN 1+ mg/dL (NEGATIVE); URINE UROBILINOGEN NORMAL mg/dL (0.2-1.0); WBC URINE 61 /hpf (0-5)
[2017-06-07] MEDS ORDERED: Sodium Chloride 0.9% 1,000 ML IV STA (10:18)
--- NOTE | 2017-06-07 10:35 | C.PDOC ---
History Of Present Illness 32 y/o F presents with R groin pain radiating to R flank associated with nausea and hematuria. Patient states she was here 20 days ago and diagnosed with 8mm kidney stone. She states it has not passed, she is out of her Percocet prescription and is in severe pain. She states she has been unable to follow up with Urology as her insurance is not accepted. Denies fever, vomiting, dyspnea. Time Seen by Provider: 06/07/17 10:07 Chief Complaint (Nursing): Female Genitourinary Past Medical History Vital Signs: Last Vital Signs Temp 98.1 F 06/07/17 08:51 Pulse 79 06/07/17 12:40 Resp 18 06/07/17 12:40 BP 120/80 06/07/17 12:40 Pulse Ox 100 06/07/17 12:40 - Medical History PMH: Anemia, Anxiety, Crohn's Disease, Diabetes, Fractures (RIGHT HAND-CASTED ONLY), Gall Bladder Disease, Kidney Stones, Personality Disorder, Chronic Kidney Disease Surgical History: Appendectomy, Cholecystectomy Family History: States: Unknown Family Hx - Social History Hx Tobacco Use: Yes Hx Alcohol Use: No Hx Substance Use: No - Immunization History Hx Tetanus Toxoid Vaccination: No Hx Influenza Vaccination: No Hx Pneumococcal Vaccination: No Review Of Systems Except As Marked, All Systems Reviewed And Found Negative. Constitutional: Negative for: Fever Respiratory: Negative for: Shortness of Breath Physical Exam - Physical Exam Additional Physical Exam Comments: Constitutional: No acute distress. Head: Normocephalic. Atraumatic. Eyes: PERRL. ENT: Moist mucous membranes. Neck: Supple. Cardiovascular: Regular rate. Radial pulse 2+ bilaterally. Chest: No tenderness. Respiratory: Clear to auscultation bilaterally. GI: Soft. Nontender. Non distended. Back: R CVA tenderness. Musculoskeletal: No tenderness or swelling of extremities. Skin: No rash. Neurologic: Alert, no focal deficit. ED Course And Treatment - Laboratory Results Result Diagrams: 06/07/17 11:11 06/07/17 11:11 O2 Sat by Pulse Oximetry: 100 Medical Decision Making Medical Decision Making: FINDINGS: LOWER THORAX: Lung bases clear. No infiltrate effusion or basilar pneumothorax. Heart size within range of normal. No significant pericardial effusion. LIVER: Mid liver exhibits normal size. Few tiny radiopaque density seen along the inferomedial surface right lobe liver which could be secondary to capsular surface calcification or possibly related to prior cholecystectomy. . These foci are unchanged No gross lesion or ductal dilatation. GALLBLADDER AND BILE DUCTS: Status post cholecystectomy with multiple metallic clips again seen all in the gallbladder fossa PANCREAS: Unremarkable. No mass. No ductal dilatation. SPLEEN: Unremarkable. No splenomegaly. ADRENALS: Unremarkable. KIDNEYS AND URETERS: Re- demonstrated is bilateral medullary calcinosis likely representing medullary sponge kidney. . There is moderate right-sided hydronephrosis which is felt to be secondary to a distal right ureteral calculus measuring approximately 6.5 mm best seen on axial image number [id number] BLADDER: Urinary bladder is incompletely distended which may account for sickle thick- walled appearance. Possibility of a cystitis not excluded. REPRODUCTIVE: Uterus and adnexal structures unremarkable as visualized. APPENDIX: Appendix is not seen with any certainty consistent with patient's history of appendectomy. The aaron all BOWEL: Unremarkable. No obstruction. No gross mural thickening. PERITONEUM: Unremarkable. No fluid collection. No free air. . Localized small area of dehiscence mid anterior abdominal wall LYMPH NODES: Unremarkable. No enlarged lymph nodes. VASCULATURE: Unremarkable. No aortic aneurysm. BONES: No fracture or destructive lesion. OTHER FINDINGS: None. IMPRESSION: Bilateral medullary calcinosis consistent with medullary sponge kidney. There is a 6.5 mm calculus distal right ureter with persistent moderate right-sided hydronephrosis. . Urinary bladder incompletely distended which may account for thick-walled appearance. Rule out cystitis. Re- demonstrated are changes of cholecystectomy. Small localized dehiscence of the mid anterior abdominal wall Patient started on antibiotics, IVF, pain medication. Dr. Elmore accepts patient to hospitalist service. Disposition Discussed With : Son Elmore Doctor Will See Patient In The: Hospital - Disposition Disposition: HOSPITALIZED Disposition Time: 11:55 Condition: FAIR Forms: [employer] [employer] (Malawian) - Clinical Impression Clinical Impression: UTI (urinary tract infection), Nephrolithiasis
[2017-06-07] MEDS ORDERED: Morphine 4 MG/ML VIAL ONE (10:53)
[2017-06-07] MEDS ORDERED: Sodium Chloride 0.9% 1,000 ML ONE ×2 (10:54→14:27)
[2017-06-07 11:16] LABS: BASO # 0.1 K/uL (0.0-0.2); BASO % 1.2 % (0.0-2.0); EOS # 0.2 K/uL (0.0-0.7); EOS % 3.1 % (0.0-4.0); HEMATOCRIT 39.2 % (34.0-47.0); LYMPH # 1.1 K/uL (1.0-4.3); LYMPH % 21.2 % (20.0-40.0); MEAN CELL VOLUME 84.5 fL (81.0-99.0); MEAN CORPUSCULAR HEMOGLOBIN 28.3 pg (27.0-31.0); MEAN CORPUSCULAR HGB CONC 33.5 g/dL (33.0-37.0); MEAN PLATELET VOLUME 9.2 fL (7.2-11.7); MONO # 0.5 K/uL (0.0-0.8); MONO % 9.8 % (0.0-10.0); RED CELL DISTRIBUTION WIDTH 14.1 % (11.5-14.5); WHITE BLOOD COUNT 5.1 K/uL (4.8-10.8)
[2017-06-07 11:26] LABS: CHLORIDE 101 mmol/L (98-107); SODIUM 135 mmol/L (132-148)
[2017-06-07 11:27] LABS: POTASSIUM 3.6 mmol/L (3.6-5.2)
[2017-06-07 11:29] LABS: ALKALINE PHOSPHATASE 87 U/L (38-126); ALT/SGPT 44 U/L (9-52); AST/SGOT 22 U/L (14-36); BILIRUBIN,TOTAL 0.7 mg/dL (0.2-1.3); BLOOD UREA NITROGEN 15 mg/dL (7-17); CARBON DIOXIDE 23 mmol/L (22-30); GFR AFRICAN-AMERICAN > 60; TOTAL PROTEIN 8.6 g/dL (6.3-8.3)
[2017-06-07 11:30] LABS: CALCIUM 9.4 mg/dl (8.6-10.4); GLUCOSE,RANDOM 83 mg/dL (65-105)
--- NOTE | 2017-06-07 11:57 | CT ---
PROCEDURE: CT abdomen and pelvis dated 06/07/2017. HISTORY: flank pain COMPARISON: Comparison made with CT scan of the abdomen pelvis 05/18/2017 TECHNIQUE: Contiguous axial images of the abdomen and pelvis. Oral contrast was administered. No IV contrast given. Coronal and Sagittal reformats generated. Radiation dose: Total exam DLP = 296.06 mGy-cm. This CT exam was performed using one or more of the following dose reduction techniques: Automated exposure control, adjustment of the mA and/or kV according to patient size, and/or use of iterative reconstruction technique. FINDINGS: LOWER THORAX: Lung bases clear. No infiltrate effusion or basilar pneumothorax. Heart size within range of normal. No significant pericardial effusion. LIVER: Mid liver exhibits normal size. Few tiny radiopaque density seen along the inferomedial surface right lobe liver which could be secondary to capsular surface calcification or possibly related to prior cholecystectomy. . These foci are unchanged No gross lesion or ductal dilatation. GALLBLADDER AND BILE DUCTS: Status post cholecystectomy with multiple metallic clips again seen all in the gallbladder fossa PANCREAS: Unremarkable. No mass. No ductal dilatation. SPLEEN: Unremarkable. No splenomegaly. ADRENALS: Unremarkable. KIDNEYS AND URETERS: Re- demonstrated is bilateral medullary calcinosis likely representing medullary sponge kidney. . There is moderate right-sided hydronephrosis which is felt to be secondary to a distal right ureteral calculus measuring approximately 6.5 mm best seen on axial image number [id number] BLADDER: Urinary bladder is incompletely distended which may account for sickle thick-walled appearance. Possibility of a cystitis not excluded. REPRODUCTIVE: Uterus and adnexal structures unremarkable as visualized. APPENDIX: Appendix is not seen with any certainty consistent with patient's history of appendectomy. The aaron all BOWEL: Unremarkable. No obstruction. No gross mural thickening. PERITONEUM: Unremarkable. No fluid collection. No free air. . Localized small area of dehiscence mid anterior abdominal wall LYMPH NODES: Unremarkable. No enlarged lymph nodes. VASCULATURE: Unremarkable. No aortic aneurysm. BONES: No fracture or destructive lesion. OTHER FINDINGS: None. IMPRESSION: Bilateral medullary calcinosis consistent with medullary sponge kidney. There is a 6.5 mm calculus distal right ureter with persistent moderate right-sided hydronephrosis. . Urinary bladder incompletely distended which may account for thick-walled appearance. Rule out cystitis. Re- demonstrated are changes of cholecystectomy. Small localized dehiscence of the mid anterior abdominal wall
[2017-06-07] MEDS ORDERED: Sulfamethoxazole/Trimethoprim 160 MG in Dextrose 5% In Water 250 ML IVPB STA (12:18)
[2017-06-07] MEDS ORDERED: Aztreonam 1 GM in Sodium Chloride 0.9% 100 ML IVPB SCH (14:15)
[2017-06-07] MEDS: Sodium Chloride 0.9% 1,000 ML IV SCH ×2 (14:25→22:05)
--- NOTE | 2017-06-07 15:04 | CP.PCM.HP ---
<Joel Zarate - Last Filed: 06/07/17 15:45> History of Present Illness - History of Present Illness History of Present Illness: PGY1 Medicine Note for Dr. Elmore 32 year old female, PMHx includes Anemia, Anxiety, Crohn's Disease, Diabetes, Endometriosis, Gall Bladder Disease, Kidney Stones, Personality Disorder, Medullary Sponge Kidney presents with abdominal pain. The patient was recently seen in the emergency room the same issue on 05/18/17. It was discovered that the patient had an 6-7mm obstructing distal right ureteral calculus causing mild right hydronephrosis. Patient was going to be admitted but she did not want to be and requested to be discharged home with pain medication. Patient discharged home from ED on Augmentin for 7 days, Reglan, Percocet (14 tabs) and Flomax. Patient returned to the emergency room today because the pain never went away and is now worse. The patient states the pain starts suprapubically and then radiates around her right side into her low back on the right side only. Denies any pain on the left. Patient reports that her urine has been changing colors recently. She states it turned a dark brown to red to yellow and then the cycle repeats. The patient reports that she has been urinating less and less and now feels that she can not urinate more than a couple of drops , even though she feels like she needs to urinate. Patient reports subjective fevers, chills, nausea without vomiting and a migraine (3 days straight). Denies SOB, chest pain, numbness or tingling. PMD: Dr. Marte PMH: Anemia, Anxiety, Crohn's Disease, Diabetes, Fibroids, Endometriosis, Gall Bladder Disease, Kidney Stones, Personality Disorder, Medullary Sponge Kidney PSH: Appendectomy, Cholecystectomy, patient in too much pain (stopped answering questions) Family: unknown Social: former smoker (quit 3 months ago), denies alcohol or illicit drug use Allergies: Cipro (rash), Metronidazole (rash), Cefadroxil Hydrate (Rash), Ibuprofen (shortness of breath) Home Meds: none Present on Admission - Present on Admission Any Indicators Present on Admission: No Review of Systems - Constitutional Constitutional: Chills, Fever, Headache - EENT Nose/Mouth/Throat: absent: Nasal Congestion, Nasal Discharge, Post Nasal Drip - Cardiovascular Cardiovascular: absent: Chest Pain, Dyspnea - Respiratory Respiratory: absent: Cough, Dyspnea - Gastrointestinal Gastrointestinal: Abdominal Pain (suprapubic, RLQ), Nausea. absent: Diarrhea, Vomiting - Genitourinary Genitourinary: Change in Urinary Stream (decreased), Difficulty Urinating, Dysuria, Voiding Freq/Small Amts (small amounts), Hx Renal/Bladder Calculi ( Medullary sponge kindey) - Musculoskeletal Musculoskeletal: Back Pain (right low back). absent: Numbness, Tingling - Integumentary Integumentary: absent: Erythema, Rash - Neurological Neurological: Headaches. absent: Numbness, Memory Loss, Tingling, Weakness - Psychiatric Psychiatric: Difficulty Concentrating (due to pain) Past Patient History - Infectious Disease Hx of Infectious Diseases: None - Past Medical History & Family History Past Medical History?: Yes - Past Social History Smoking Status: Former Smoker - CARDIAC Hx Cardiac Disorders: No - PULMONARY Hx Respiratory Disorders: No - NEUROLOGICAL Hx Neurological Disorder: Yes Hx Vertigo: Yes - HEENT Hx HEENT Problems: No - RENAL Hx Chronic Kidney Disease: Yes Hx Kidney Stones: Yes - ENDOCRINE/METABOLIC Hx Endocrine Disorders: Yes Hx Diabetes Mellitus Type 2: Yes (borderline?? no medication) - HEMATOLOGICAL/ONCOLOGICAL Hx Anemia: Yes - INTEGUMENTARY Hx Dermatological Problems: Yes Hx Psoriasis: Yes - MUSCULOSKELETAL/RHEUMATOLOGICAL Hx Fractures: Yes (RIGHT HAND-CASTED ONLY) - GASTROINTESTINAL Hx Crohn's Disease: Yes Hx Gall Bladder Disease: Yes - GENITOURINARY/GYNECOLOGICAL Hx Genitourinary Disorders: Yes Hx Urinary Tract Infection: Yes Other/Comment: HX: Endometriosis. HX: FIBROID UTERUS - PSYCHIATRIC Hx Anxiety: Yes Hx Substance Use: No - SURGICAL HISTORY Hx Appendectomy: Yes Hx Cholecystectomy: Yes - ANESTHESIA Hx Anesthesia: Yes Hx Anesthesia Reactions: Yes (VOMITING/DIFFICULTY VOIDING) Hx Malignant Hyperthermia: No Meds Allergies/Adverse Reactions: Allergies Allergy/AdvReac Type Severity Reaction Status Date / Time cefadroxil hydrate Allergy RASH Verified 06/07/17 08:52 [From Duricef] ciprofloxacin [From Cipro] Allergy RASH Verified 06/07/17 08:52 ciprofloxacin HCl Allergy RASH Verified 06/07/17 08:52 [From Cipro] ibuprofen Allergy SHORTNESS Verified 06/07/17 08:52 OF BREATH metronidazole [From Flagyl] Allergy RASH Verified 06/07/17 08:52 pertussis vaccine,adsorbed Allergy SHORTNESS Verified 06/07/17 08:52 OF BREATH potassium clavulanate Allergy DIARRHEA Verified 06/07/17 08:52 [From Augmentin] Physical Exam - Constitutional Appears: In Acute Distress, Older Than Stated Age - Head Exam Head Exam: ATRAUMATIC, NORMOCEPHALIC - Eye Exam Eye Exam: EOMI, Normal appearance - ENT Exam ENT Exam: Mucous Membranes Moist - Respiratory Exam Respiratory Exam: Clear to Auscultation Bilateral, NORMAL BREATHING PATTERN. absent: Accessory Muscle Use, Rales, Wheezes, Respiratory Distress - Cardiovascular Exam Cardiovascular Exam: Tachycardia, +S1, +S2 - GI/Abdominal Exam GI & Abdominal Exam: Guarding (RLQ), Normal Bowel Sounds, Soft, Tenderness (RLQ/ suprapubic). absent: Diminished Bowel Sounds, Distended, Firm, Rebound, Rigid - Extremities Exam Extremities exam: Positive for: normal inspection, pedal pulses present. Negative for: calf tenderness, pedal edema - Back Exam Back exam: CVA tenderness (R). absent: CVA tenderness (L), paraspinal tenderness, rash noted, vertebral tenderness - Neurological Exam Neurological exam: Alert, Oriented x3 - Psychiatric Exam Psychiatric exam: Agitated (patient is constantly moving around. Stating she can not get comfortable) - Skin Skin Exam: Dry, Warm Additional comments: Striae on abdomen. Silver scaly patches on elbows and knees. Results - Vital Signs Recent Vital Signs: Last Vital Signs Temp 98.1 F 06/07/17 08:51 Pulse 79 06/07/17 12:40 Resp 18 06/07/17 12:40 BP 120/80 06/07/17 12:40 Pulse Ox 100 06/07/17 13:04 - Labs Result Diagrams: 06/07/17 11:11 06/07/17 11:11 Labs: Laboratory Results - last 24 hr 06/07/17 06/07/17 06/07/17 09:17 11:11 11:11 WBC 5.1 RBC 4.64 Hgb 13.1 Hct 39.2 MCV 84.5 MCH 28.3 MCHC 33.5 RDW 14.1 Plt Count 229 MPV 9.2 Neut % (Auto) 64.7 Lymph % (Auto) 21.2 [place] % (Auto) 9.8 Eos % (Auto) 3.1 Baso % (Auto) 1.2 Neut # 3.3 Lymph # 1.1 [place] # 0.5 Eos # 0.2 Baso # 0.1 PT 11.3 INR 1.0 APTT 37 H Sodium Potassium Chloride Carbon Dioxide Anion Gap BUN Creatinine Est GFR ( Amer) Est GFR (Non-Af Amer) Random Glucose Calcium Total Bilirubin AST ALT Alkaline Phosphatase Total Protein Albumin Globulin Albumin/Globulin Ratio Urine Color Yellow Urine Clarity Hazy Urine pH 6.0 Ur Specific [place] 1.016 Urine Protein 1+ H Urine Glucose (UA) Normal Urine Ketones Negative Urine Blood 1+ H Urine Nitrate Negative Urine Bilirubin Negative Urine Urobilinogen Normal Ur Leukocyte Esterase 3+ H Urine WBC (Auto) 61 H Urine RBC (Auto) 14 H Ur Squamous Epith Cells 28 H Urine Bacteria Rare Urine HCG, Qual Negative Blood Type Antibody Screen 06/07/17 06/07/17 11:11 11:11 WBC RBC Hgb Hct MCV MCH MCHC RDW Plt Count MPV Neut % (Auto) Lymph % (Auto) [place] % (Auto) Eos % (Auto) Baso % (Auto) Neut # Lymph # [place] # Eos # Baso # PT INR APTT Sodium 135 Potassium 3.6 Chloride 101 Carbon Dioxide 23 Anion Gap 15 BUN 15 Creatinine 0.7 Est GFR ( Amer) > 60 Est GFR (Non-Af Amer) > 60 Random Glucose 83 Calcium 9.4 Total Bilirubin 0.7 AST 22 ALT 44 Alkaline Phosphatase 87 Total Protein 8.6 H Albumin 4.4 Globulin 4.2 H Albumin/Globulin Ratio 1.0 Urine Color Urine Clarity Urine pH Ur Specific [place] Urine Protein Urine Glucose (UA) Urine Ketones Urine Blood Urine Nitrate Urine Bilirubin Urine Urobilinogen Ur Leukocyte Esterase Urine WBC (Auto) Urine RBC (Auto) Ur Squamous Epith Cells Urine Bacteria Urine HCG, Qual Blood Type O POSITIVE Antibody Screen Negative Assessment & Plan - Assessment and Plan (Free Text) Plan: Nephrolithiasis Patient was recently here on 05/18/17 for the same complaint. On abd/pelv CT the patient had an 6-7mm obstructing distal right ureteral calculus causing mild right hydronephrosis. Patient was going to be admitted but she did not want to be and requested to be discharged home with pain medication. Patient discharged home from ED on Augmentin for 7 days, Reglan, Percocet (14 tabs) and Flomax. Patient returned to the emergency room today because the pain never went away and is now worse. Urology Consult - Dr. 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 There is a 6.5 mm calculus distal right ureter with persistent moderate right-sided hydronephrosis. . Urinary bladder incompletely distended which may account for thick-walled appearance. Rule out cystitis. Re- demonstrated are changes of cholecystectomy. Small localized dehiscence of the mid anterior abdominal wall Started on Morphine 3mg Q3 No toradol due to ibuprofen allergy (shortness of breath) NS @150mL/hr UTI No leukocytosis UA - contaminated f/u repeat UA f/u urine culture f/u blood culture Started on Aztreonam 1gm IVPB Q12H Possible Drug Seeking Behavior Patient denies illicit drug use. Patient received 6mg of morphine in the ED. Patient is still actively rolling around on the bed stating the pain is excruciating and that the morphine did not even take the edge off the pain. The pain is requesting more pain medications, "You have to do something for this pain. Morphine is not working. Not even a little bit. You need to give me something stronger." Patient states she has an allergy to ibuprofen stating that she becomes short of breath when she takes it. Started on Morphine 3mg Q3 f/u UDS Continue to monitor Hx of Medullary Sponge Kidney Patient was unable to state how she received this diagnosis, although CT imaging is consistent with medullary sponge kidney. This diagnosis makes the patient more susceptible to UTIs and kidney stones. Prophylactic Care Heparin 5000 units SC Q8 Protonix 40mg IVP daily Patient states she has many different medical problems but claims she does not take any medications for any of them. She has never been admitted here before. Her PMD is Dr. Marte. Will need to call to verify diagnoses and see if there are any medications the patient is supposed to be taking. Case discussed with Dr. Catarina Maldonado Elliot - Date & Time Date: 06/07/17 Time: 12:30 <Son Elmore - Last Filed: 06/07/17 17:18> Results - Vital Signs Recent Vital Signs: Last Vital Signs Temp 97.5 F L 06/07/17 16:30 Pulse 77 06/07/17 16:30 Resp 20 06/07/17 16:30 BP 121/83 06/07/17 16:30 Pulse Ox 100 06/07/17 16:30 - Labs Result Diagrams: 06/07/17 11:11 06/07/17 11:11 Labs: Laboratory Results - last 24 hr 06/07/17 06/07/17 06/07/17 09:17 11:11 11:11 WBC 5.1 RBC 4.64 Hgb 13.1 Hct 39.2 MCV 84.5 MCH 28.3 MCHC 33.5 RDW 14.1 Plt Count 229 MPV 9.2 Neut % (Auto) 64.7 Lymph % (Auto) 21.2 [place] % (Auto) 9.8 Eos % (Auto) 3.1 Baso % (Auto) 1.2 Neut # 3.3 Lymph # 1.1 [place] # 0.5 Eos # 0.2 Baso # 0.1 PT 11.3 INR 1.0 APTT 37 H Sodium Potassium Chloride Carbon Dioxide Anion Gap BUN Creatinine Est GFR ( Amer) Est GFR (Non-Af Amer) Random Glucose Calcium Total Bilirubin AST ALT Alkaline Phosphatase Total Protein Albumin Globulin Albumin/Globulin Ratio Urine Color Yellow Urine Clarity Hazy Urine pH 6.0 Ur Specific [place] 1.016 Urine Protein 1+ H Urine Glucose (UA) Normal Urine Ketones Negative Urine Blood 1+ H Urine Nitrate Negative Urine Bilirubin Negative Urine Urobilinogen Normal Ur Leukocyte Esterase 3+ H Urine WBC (Auto) 61 H Urine RBC (Auto) 14 H Ur Squamous Epith Cells 28 H Urine Bacteria Rare Urine HCG, Qual Negative Blood Type Antibody Screen 06/07/17 06/07/17 11:11 11:11 WBC RBC Hgb Hct MCV MCH MCHC RDW Plt Count MPV Neut % (Auto) Lymph % (Auto) [place] % (Auto) Eos % (Auto) Baso % (Auto) Neut # Lymph # [place] # Eos # Baso # PT INR APTT Sodium 135 Potassium 3.6 Chloride 101 Carbon Dioxide 23 Anion Gap 15 BUN 15 Creatinine 0.7 Est GFR ( Amer) > 60 Est GFR (Non-Af Amer) > 60 Random Glucose 83 Calcium 9.4 Total Bilirubin 0.7 AST 22 ALT 44 Alkaline Phosphatase 87 Total Protein 8.6 H Albumin 4.4 Globulin 4.2 H Albumin/Globulin Ratio 1.0 Urine Color Urine Clarity Urine pH Ur Specific [place] Urine Protein Urine Glucose (UA) Urine Ketones Urine Blood Urine Nitrate Urine Bilirubin Urine Urobilinogen Ur Leukocyte Esterase Urine WBC (Auto) Urine RBC (Auto) Ur Squamous Epith Cells Urine Bacteria Urine HCG, Qual Blood Type O POSITIVE Antibody Screen Negative Attending/Attestation - Attestation I have personally seen and examined this patient.: Yes I have fully participated in the care of the patient.: Yes I have reviewed all pertinent clinical information: Yes Notes (Text): 06/07/17 17:18 Medical attending: Patient was seen and examined by me, agrees the above note by esthetician and manager medical spa. We came and saw the patient [address]. She did not appear to be any acute distress when we saw her however she was reporting that she had flank pain particularly on the right-hand side. As mentioned above the resident note the patient underwent a CT scan in the emergency room suggested a stone on the right -hand side. There is also note of hydronephrosis. The UA suggested that she may have also infection as well. Unfortunately it appears to be not a good catch and sober can have to repeat that. Unfortunately there may be some element of drug-seeking behavior. We will later informed by the staff on third floor that the patient was rather demanding of pain medication. I came down and saw her with the esthetician and manager medical spa. The patient was in her room, she was sleeping and she again did not appear to be any acute distress but she did tell me that she thought the morphine was not strong enough for her. I explained her breathing to try something called Toradol IV to see how she does with this. The patient stated that she was willing to try this At this moment I want to give the patient the benefit of doubt however I explained to the nursing as well as the esthetician and manager medical spa that if we have further problems or concerns with regards to narcotic use that we need to document this carefully We're pending a urine drug screen at this time. It will be positive for opiates because she had already received morphine in the emergency room. 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
[2017-06-07] MEDS: Aztreonam 1 GM in Sodium Chloride 0.9% 100 ML IVPB SCH (18:51)
[2017-06-07 21:41] LABS: RBC URINE 11 /hpf (0-3); URINE BACTERIA RARE (<OCC); URINE BILIRUBIN NEGATIVE (NEGATIVE); URINE BLOOD 1+ (NEGATIVE); URINE COLOR Yellow (YELLOW); URINE GLUCOSE (UA) NORMAL (Normal); URINE KETONE TRACE mg/dL (NEGATIVE); URINE LEUKOCYTE ESTERASE TRACE Leu/uL (Negative); URINE PROTEIN NEGATIVE (NEGATIVE); URINE UROBILINOGEN NORMAL mg/dL (0.2-1.0); WBC URINE 14 /hpf (0-5)
[2017-06-08] MEDS: Sodium Chloride 0.9% 1,000 ML IV SCH ×4 (04:18→17:49)
--- NOTE | 2017-06-08 04:50 | CON ---
DATE: 06/07/2017 COMPREHENSIVE UROLOGY CONSULTATION TIME OF CONSULTATION: Roughly at 5:36 p.m. BRIEF HISTORY: The patient is a 32-year-old white female with a more than eight-year history of medullary sponge kidney disease who has passed stones in the past on her own not requiring any surgical intervention. She now presents to [facility] ER with a history of severe right renal colic radiating from the lower right quadrant to the right low back. Abdominal-pelvic CT stone survey showed a 6.5 mm distal right ureteral calculi stone with persistent moderate right-sided hydronephrosis. The urinary bladder was incompletely distended, which may account for thick walled appearance and to rule out cystitis. PAST MEDICAL HISTORY: Positive for Crohn's disease, positive for medullary sponge kidney, and positive for uterine fibroids PAST SURGICAL HISTORY: She has had 4 surgeries in the past. 1. Umbilical hernia surgery. 2. Tubal ligation. 3. Appendix. 4. Gallbladder surgery. SOCIAL HISTORY: She has no history of any alcohol or tobacco use. ALLERGIES: SHE HAS ALLERGIES TO CITALOPRAM, SULFA, AND AUGMENTIN. PHYSICAL EXAMINATION: GENERAL: Today, she is a well-developed, well-nourished white female. She is alert and oriented. HEENT: Grossly within normal limits. NECK: Supple. Thyroid not palpable. ABDOMEN: Soft and nondistended. She has some 1+ right lower quadrant tenderness and some 1 to 2+ right CVA tenderness, left side is completely negative. EXTREMITIES: She has full range of motion of both upper and lower extremities. No leg edema or calf tenderness present. LABORATORY DATA: Laboratory evaluation today 06/07/2017 on the date of admission shows a CBC with a WBC count 5.1, hemoglobin of 13.1 hematocrit of 39.2, and a platelet count of 229,000. PT was 11.3, INR 1.0, and PTT of 37. Sodium was 135, potassium 3.6, chloride 101, CO2 23, BUN and creatinine of 15 and 0.7 respectively with GFR greater than 50. Random glucose is 83. Calcium 9.4. Total bilirubin 0.7. AST 22, ALT 44, alkaline phosphatase is 97. Urinalysis color was yellow, clarity was hazy, pH was 6.0, specific gravity 1.016, protein was 1+, glucose was normal, ketones negative, blood was 1+. Nitrite and bilirubin both negative, urobilinogen normal. Leukocyte esterase was 3+ with 51 wbc's and 14 rbc's per high-powered field with rare bacteria and the urine HCG was negative. DIAGNOSTIC IMPRESSION FOR THIS PATIENT: 1. Right renal colic. 2. Right distal 6.5 mm ureteral stone. 3. Possible urinary tract infection. 4. Possible cystitis. PLAN: 1. Plan for this patient is to treat this patient with IV antibiotics. 2. Make sure that the patient is on Flomax 0.4 mg daily and parenteral pain medication at this time. Make sure the urine is send for culture and sensitivity. The patient is advised to strain all her urine for stones. 3. The patient will need a cystoscopy with insertion of a right ureteral stent, if the pain is not able to be controlled. The patient is currently on sulfamethoxazole 160 mg and aztreonam 1 g and she is on parenteral pain medication, which includes Toradol and also on Zofran. Blood and urine cultures are pending. We will also add Flomax to this regimen, which could help with passage of the stone and pain control. The patient can be on a regular diet as tolerated and we can make her n.p.o. past midnight. Gomez Pedro MD
[2017-06-08] MEDS: Aztreonam 1 GM in Sodium Chloride 0.9% 100 ML IVPB SCH ×2 (05:56→17:42)
[2017-06-08 09:16] LABS: EOS # 0.1 K/uL (0.0-0.7); LYMPH # 0.6 K/uL (1.0-4.3); MEAN CELL VOLUME 85.2 fL (81.0-99.0); MONO # 0.7 K/uL (0.0-0.8); WHITE BLOOD COUNT 6.2 K/uL (4.8-10.8)
[2017-06-08 09:22] LABS: BASO % 0.5 % (0.0-2.0); EOS % 1.2 % (0.0-4.0); LYMPH % 10.5 % (20.0-40.0); MEAN CORPUSCULAR HEMOGLOBIN 28.4 pg (27.0-31.0); MEAN CORPUSCULAR HGB CONC 33.4 g/dL (33.0-37.0); MEAN PLATELET VOLUME 9.2 fL (7.2-11.7); MONO % 10.7 % (0.0-10.0); NRBC % 0.1 % (0.0-2.0); RED CELL DISTRIBUTION WIDTH 13.9 % (11.5-14.5)
[2017-06-08 09:34] LABS: CHLORIDE 102 mmol/L (98-107)
[2017-06-08 09:35] LABS: POTASSIUM 3.9 mmol/L (3.6-5.2); SODIUM 131 mmol/L (132-148)
[2017-06-08 09:37] LABS: ALB/GLOB RATIO 1.4 (1.0-2.1); BILIRUBIN,TOTAL 0.7 mg/dL (0.2-1.3); CARBON DIOXIDE 23 mmol/L (22-30); GFR AFRICAN-AMERICAN > 60; TOTAL PROTEIN 5.4 g/dL (6.3-8.3)
[2017-06-08 09:38] LABS: ALKALINE PHOSPHATASE 63 U/L (38-126); ALT/SGPT 32 U/L (9-52); AST/SGOT 18 U/L (14-36); BLOOD UREA NITROGEN 12 mg/dL (7-17); CALCIUM 7.7 mg/dl (8.6-10.4); GLUCOSE,RANDOM 80 mg/dL (65-105)
--- NOTE | 2017-06-08 09:50 | CP.PCM.PN ---
<Joel Zarate - Last Filed: 06/08/17 09:48> Subjective - Date & Time of Evaluation Date of Evaluation: 06/08/17 Time of Evaluation: 09:48 - Subjective Subjective: PGY1 Medicine Note for Dr. Elmore Patient seen and examined at bedside this morning. Patient was resting comfortably. Patient complained of a headache today. She is still complaining of right sided abdominal and low back pain. Denies f/c, n/v, SOB, cp, numbness or tingling. Patient is currently NPO for a procedure later this morning with Dr. Pedro. Objective - Vital Signs/Intake and Output Vital Signs (last 24 hours): Temp Pulse Resp BP Pulse Ox 98.8 F 78 20 104/60 95 06/08/17 09:03 06/08/17 09:03 06/08/17 09:03 06/08/17 09:03 06/08/17 09:03 Intake and Output: 06/08/17 06/08/17 06:59 18:59 Intake Total 900 1150 Balance 900 1150 - Medications Medications: Current Medications Heparin Sodium (Porcine) (Heparin) 5,000 units SC Q8 [facility] Last Admin: 06/08/17 05:57 Dose: 5,000 units Sodium Chloride (Sodium Chloride 0.9%) 1,000 mls @ 150 mls/hr IV .Q6H40M [facility] Last Admin: 06/08/17 04:18 Dose: 150 mls/hr Aztreonam 1 gm/ Sodium (Chloride) 100 mls @ 200 mls/hr IVPB Q12H [facility] Last Admin: 06/08/17 05:56 Dose: 200 mls/hr Morphine Sulfate (Morphine) 3 mg IVP Q3 [facility] Last Admin: 06/08/17 07:15 Dose: Not Given Ondansetron HCl (Zofran Inj) 4 mg IVP Q4 PRN PRN Reason: Nausea/Vomiting Last Admin: 06/08/17 01:13 Dose: 4 mg Pantoprazole Sodium (Protonix Inj) 40 mg IVP DAILY [facility] Last Admin: 06/07/17 14:55 Dose: 40 mg Tamsulosin HCl (Flomax) 0.4 mg PO DAILY [facility] Last Admin: 06/07/17 18:51 Dose: 0.4 mg - Labs Labs: 06/08/17 09:08 06/08/17 09:08 PT 11.3 SECONDS (9.7-12.2) 06/07/17 11:11 INR 1.0 06/07/17 11:11 APTT 37 SECONDS (21-34) H 06/07/17 11:11 - Constitutional Appears: Non-toxic, No Acute Distress - Head Exam Head Exam: ATRAUMATIC, NORMOCEPHALIC - Eye Exam Eye Exam: EOMI - Respiratory Exam Respiratory Exam: Clear to Ausculation Bilateral, NORMAL BREATHING PATTERN. absent: Accessory Muscle Use, Rales, Wheezes, Respiratory Distress - Cardiovascular Exam Cardiovascular Exam: +S1, +S2 - GI/Abdominal Exam GI & Abdominal Exam: Soft, Tenderness (RLQ), Normal Bowel Sounds. absent: Distended, Firm, Guarding, Rigid - Extremities Exam Extremities Exam: Normal Inspection. absent: Calf Tenderness, Pedal Edema - Back Exam Back Exam: CVA tenderness (R). absent: CVA tenderness (L), paraspinal tenderness, vertebral tenderness - Neurological Exam Neurological Exam: Alert, Awake, Oriented x3 - Psychiatric Exam Psychiatric exam: Normal Affect, Normal Mood - Skin Skin Exam: Dry, Normal Color, Warm Assessment and Plan - Assessment and Plan (Free Text) Plan: Nephrolithiasis Patient was recently here on 05/18/17 for the same complaint. On abd/pelv CT the patient had an 6-7mm obstructing distal right ureteral calculus causing mild right hydronephrosis. Patient was going to be admitted but she did not want to be and requested to be discharged home with pain medication. Patient discharged home from ED on Augmentin for 7 days, Reglan, Percocet (14 tabs) and Flomax. Patient returned to the emergency room today because the pain never went away and is now worse. Urology Consult - Dr. 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 There is a 6.5 mm calculus distal right ureter with persistent moderate right-sided hydronephrosis. . Urinary bladder incompletely distended which may account for thick-walled appearance. Rule out cystitis. Re- demonstrated are changes of cholecystectomy. Small localized dehiscence of the mid anterior abdominal wall Patient is scheduled for R ureter stent placement later this morning with Dr. Pedro Started on Morphine 3mg Q3 No toradol due to ibuprofen allergy (shortness of breath) NS @150mL/hr Flomax 0.4mg PO daily UTI No leukocytosis UA - contaminated repeat UA - 1+ blood, ketones trace, leuk ary trace, bacteria rare urine culture - no growth f/u blood culture Started on Aztreonam 1gm IVPB Q12H Possible Drug Seeking Behavior Patient did not ask for any new medications over night. Started on Morphine 3mg Q3 f/u UDS Continue to monitor Hx of Medullary Sponge Kidney Patient was unable to state how she received this diagnosis, although CT imaging is consistent with medullary sponge kidney. This diagnosis makes the patient more susceptible to UTIs and kidney stones. Prophylactic Care Heparin 5000 units SC Q8 Protonix 40mg IVP daily Patient states she has many different medical problems but claims she does not take any medications for any of them. She has never been admitted here before. Her PMD is Dr. Marte. Will need to call to verify diagnoses and see if there are any medications the patient is supposed to be taking. Case discussed with Dr. Catarina Zarate <Son Elmore H - Last Filed: 06/08/17 12:00> Objective - Vital Signs/Intake and Output Vital Signs (last 24 hours): Temp Pulse Resp BP Pulse Ox 98.8 F 78 20 104/60 95 06/08/17 09:03 06/08/17 09:03 06/08/17 09:03 06/08/17 09:03 06/08/17 09:03 Intake and Output: 06/08/17 06/08/17 06:59 18:59 Intake Total 900 1150 Balance 900 1150 - Medications Medications: Current Medications Acetaminophen (Tylenol 325mg Tab) 650 mg PO Q6 PRN PRN Reason: fever/pain Last Admin: 06/08/17 11:46 Dose: 650 mg Heparin Sodium (Porcine) (Heparin) 5,000 units SC Q8 [facility] Last Admin: 06/08/17 05:57 Dose: 5,000 units Sodium Chloride (Sodium Chloride 0.9%) 1,000 mls @ 150 mls/hr IV .Q6H40M [facility] Last Admin: 06/08/17 10:29 Dose: Not Given Aztreonam 1 gm/ Sodium (Chloride) 100 mls @ 200 mls/hr IVPB Q12H [facility] Last Admin: 06/08/17 05:56 Dose: 200 mls/hr Morphine Sulfate (Morphine) 3 mg IVP Q3 [facility] Last Admin: 06/08/17 10:27 Dose: 3 mg Ondansetron HCl (Zofran Inj) 4 mg IVP Q4 PRN PRN Reason: Nausea/Vomiting Last Admin: 06/08/17 10:29 Dose: 4 mg Pantoprazole Sodium (Protonix Inj) 40 mg IVP DAILY [facility] Last Admin: 06/08/17 11:08 Dose: 40 mg Tamsulosin HCl (Flomax) 0.4 mg PO DAILY [facility] Last Admin: 06/08/17 10:27 Dose: 0.4 mg - Labs Labs: 06/08/17 09:08 06/08/17 09:08 PT 11.3 SECONDS (9.7-12.2) 06/07/17 11:11 INR 1.0 06/07/17 11:11 APTT 37 SECONDS (21-34) H 06/07/17 11:11 Attending/Attestation - Attestation I have personally seen and examined this patient.: Yes I have fully participated in the care of the patient.: Yes I have reviewed all pertinent clinical information, including history, physical exam and plan: Yes Notes (Text): Medical attending: Patient was seen and examined by me, agrees the above note by medical field representative. The patient was depressed and sleeping, she appeared to be comfortable. I woke her up and she said that she seemed to be doing much better than the previous day. She reported that the pain medication seem to be helping tremendously. She is continuing to get intravenous fluids as well as Flomax. The patient is currently nothing by mouth at this moment. From what I understand neurology is planning for potential cystoscopy potential's stenting to be done In the meantime the patient remains on intravenous fluids as well as IV antibiotics Thank you very much, Son Elmore
[2017-06-09] MEDS: Sodium Chloride 0.9% 1,000 ML IV SCH ×3 (00:25→14:18)
[2017-06-09] MEDS: Aztreonam 1 GM in Sodium Chloride 0.9% 100 ML IVPB SCH (05:07)
[2017-06-09 07:22] LABS: BASO % 1.1 % (0.0-2.0); EOS # 0.2 K/uL (0.0-0.7); EOS % 4.2 % (0.0-4.0); HEMATOCRIT 30.3 % (34.0-47.0); LYMPH # 1.2 K/uL (1.0-4.3); LYMPH % 30.9 % (20.0-40.0); MEAN CELL VOLUME 84.8 fL (81.0-99.0); MEAN CORPUSCULAR HEMOGLOBIN 28.3 pg (27.0-31.0); MEAN CORPUSCULAR HGB CONC 33.4 g/dL (33.0-37.0); MEAN PLATELET VOLUME 9.3 fL (7.2-11.7); MONO # 0.4 K/uL (0.0-0.8); MONO % 9.7 % (0.0-10.0); NRBC % 0.1 % (0.0-2.0); RED CELL DISTRIBUTION WIDTH 13.9 % (11.5-14.5); WHITE BLOOD COUNT 3.9 K/uL (4.8-10.8)
[2017-06-09 07:41] LABS: CHLORIDE 107 mmol/L (98-107)
[2017-06-09 07:42] LABS: POTASSIUM 3.7 mmol/L (3.6-5.2); SODIUM 135 mmol/L (132-148)
[2017-06-09 07:44] LABS: ALB/GLOB RATIO 1.3 (1.0-2.1); ALKALINE PHOSPHATASE 58 U/L (38-126); AST/SGOT 20 U/L (14-36); BILIRUBIN,TOTAL 0.5 mg/dL (0.2-1.3); CARBON DIOXIDE 22 mmol/L (22-30); GFR AFRICAN-AMERICAN > 60; TOTAL PROTEIN 4.9 g/dL (6.3-8.3)
[2017-06-09 07:45] LABS: ALT/SGPT 33 U/L (9-52); BLOOD UREA NITROGEN 11 mg/dL (7-17); CALCIUM 7.6 mg/dl (8.6-10.4); GLUCOSE,RANDOM 83 mg/dL (65-105)
[2017-06-09 08:29] VITALS: RESP 20
--- NOTE | 2017-06-09 09:59 | CP.PCM.PN ---
Subjective - Date & Time of Evaluation Date of Evaluation: 06/09/17 Time of Evaluation: 09:49 Objective - Vital Signs/Intake and Output Vital Signs (last 24 hours): Temp Pulse Resp BP Pulse Ox 97.8 F 77 20 115/78 96 06/09/17 08:28 06/09/17 08:28 06/09/17 08:28 06/09/17 08:28 06/09/17 08:28 Intake and Output: 06/09/17 06/09/17 06:59 18:59 Intake Total 3160 Balance 3160 - Medications Medications: Current Medications Acetaminophen (Tylenol 325mg Tab) 650 mg PO Q6 PRN PRN Reason: fever/pain Last Admin: 06/09/17 07:00 Dose: 650 mg Heparin Sodium (Porcine) (Heparin) 5,000 units SC Q8 [facility] Last Admin: 06/09/17 05:07 Dose: 5,000 units Sodium Chloride (Sodium Chloride 0.9%) 1,000 mls @ 150 mls/hr IV .Q6H40M [facility] Last Admin: 06/09/17 05:24 Dose: 150 mls/hr Aztreonam 1 gm/ Sodium (Chloride) 100 mls @ 200 mls/hr IVPB Q12H [facility] Last Admin: 06/09/17 05:07 Dose: 200 mls/hr Morphine Sulfate (Morphine) 3 mg IVP Q3 [facility] Last Admin: 06/09/17 09:36 Dose: Not Given Ondansetron HCl (Zofran Inj) 4 mg IVP Q4 PRN PRN Reason: Nausea/Vomiting Last Admin: 06/09/17 09:32 Dose: 4 mg Pantoprazole Sodium (Protonix Inj) 40 mg IVP DAILY [facility] Last Admin: 06/08/17 11:08 Dose: 40 mg Tamsulosin HCl (Flomax) 0.4 mg PO DAILY [facility] Last Admin: 06/09/17 09:32 Dose: 0.4 mg - Labs Labs: 06/09/17 07:07 06/09/17 07:07 PT 11.3 SECONDS (9.7-12.2) 06/07/17 11:11 INR 1.0 06/07/17 11:11 APTT 37 SECONDS (21-34) H 06/07/17 11:11 Assessment and Plan - Assessment and Plan (Free Text) Assessment: Nephrolithiasis Patient was recently here on 05/18/17 for the same complaint. On abd/pelv CT the patient had an 6-7mm obstructing distal right ureteral calculus causing mild right hydronephrosis. Patient was going to be admitted but she did not want to be and requested to be discharged home with pain medication. Patient discharged home from ED on Augmentin for 7 days, Reglan, Percocet (14 tabs) and Flomax. Patient returned to the emergency room today because the pain never went away and is now worse. Urology Consult - Dr. 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 There is a 6.5 mm calculus distal right ureter with persistent moderate right-sided hydronephrosis. . Urinary bladder incompletely distended which may account for thick-walled appearance. Rule out cystitis. Re- demonstrated are changes of cholecystectomy. Small localized dehiscence of the mid anterior abdominal wall Patient is scheduled for R ureter stent placement later this morning with Dr. Pedro Started on Morphine 3mg Q3 NS @150mL/hr Flomax 0.4mg PO daily UTI No leukocytosis UA - contaminated repeat UA - 1+ blood, ketones trace, leuk ary trace, bacteria rare urine culture collected on 06/07/17 - no growth blood culture collected on 06/07/17 negative up to date Started on Aztreonam 1gm IVPB Q12H Possible Drug Seeking Behavior Patient did not ask for any new medications over night. Started on Morphine 3mg Q3 f/u UDS Continue to monitor Hx of Medullary Sponge Kidney Patient was unable to state how she received this diagnosis, although CT imaging is consistent with medullary sponge kidney. This diagnosis makes the patient more susceptible to UTIs and kidney stones. Prophylactic Care Heparin 5000 units SC Q8 Protonix 40mg IVP daily Patient states she has many different medical problems but claims she does not take any medications for any of them. She has never been admitted here before. Her PMD is Dr. Marte. Will need to call to verify diagnoses and see if there are any medications the patient is supposed to be taking.
[2017-06-09 16:33] VITALS: BP 105/67; PULSE 66; TEMP 98.4; O2SAT 97
--- NOTE | 2017-06-09 16:49 | CP.PCM.DIS ---
<Khoi Agrawal - Last Filed: 06/09/17 16:41> Provider - Provider Date of Admission: 06/07/17 12:19 Attending physician: Son Elmore DO Primary care physician: PMD: Dr Marte Consults: Urology: Gomez Catherine Time Spent in preparation of Discharge (in minutes): 45 Hospital Course - Lab Results Lab Results: Micro Results 06/07/17 15:00 Blood Blood Culture - Preliminary NO GROWTH AFTER 24 HOURS 06/07/17 14:30 Blood Blood Culture - Preliminary NO GROWTH AFTER 24 HOURS 06/07/17 09:20 Urine,Clean Catch Urine Culture - Final No Growth (<1,000 CFU/ML) Most Recent Lab Values WBC 3.9 K/uL (4.8-10.8) L 06/09/17 07:07 RBC 3.57 Mil/uL (3.80-5.20) L 06/09/17 07:07 Hgb 10.1 g/dL (11.0-16.0) L 06/09/17 07:07 Hct 30.3 % (34.0-47.0) L 06/09/17 07:07 MCV 84.8 fL (81.0-99.0) 06/09/17 07:07 MCH 28.3 pg (27.0-31.0) 06/09/17 07:07 MCHC 33.4 g/dL (33.0-37.0) 06/09/17 07:07 RDW 13.9 % (11.5-14.5) 06/09/17 07:07 Plt Count 161 K/uL (130-400) 06/09/17 07:07 MPV 9.3 fL (7.2-11.7) 06/09/17 07:07 Neut % (Auto) 54.1 % (50.0-75.0) 06/09/17 07:07 Lymph % (Auto) 30.9 % (20.0-40.0) 06/09/17 07:07 [place] % (Auto) 9.7 % (0.0-10.0) 06/09/17 07:07 Eos % (Auto) 4.2 % (0.0-4.0) H 06/09/17 07:07 Baso % (Auto) 1.1 % (0.0-2.0) 06/09/17 07:07 Neut # 2.1 K/uL (1.8-7.0) 06/09/17 07:07 Lymph # 1.2 K/uL (1.0-4.3) 06/09/17 07:07 [place] # 0.4 K/uL (0.0-0.8) 06/09/17 07:07 Eos # 0.2 K/uL (0.0-0.7) 06/09/17 07:07 Baso # 0.0 K/uL (0.0-0.2) 06/09/17 07:07 PT 11.3 SECONDS (9.7-12.2) 06/07/17 11:11 INR 1.0 06/07/17 11:11 APTT 37 SECONDS (21-34) H 06/07/17 11:11 Sodium 135 mmol/L (132-148) 06/09/17 07:07 Potassium 3.7 mmol/L (3.6-5.2) 06/09/17 07:07 Chloride 107 mmol/L (98-107) 06/09/17 07:07 Carbon Dioxide 22 mmol/L (22-30) 06/09/17 07:07 Anion Gap 9 (10-20) L 06/09/17 07:07 BUN 11 mg/dL (7-17) 06/09/17 07:07 Creatinine 1.0 mg/dL (0.7-1.2) 06/09/17 07:07 Est GFR ( Amer) > 60 06/09/17 07:07 Est GFR (Non-Af Amer) > 60 06/09/17 07:07 Random Glucose 83 mg/dL (65-105) 06/09/17 07:07 Calcium 7.6 mg/dl (8.6-10.4) L 06/09/17 07:07 Total Bilirubin 0.5 mg/dL (0.2-1.3) 06/09/17 07:07 AST 20 U/L (14-36) 06/09/17 07:07 ALT 33 U/L (9-52) 06/09/17 07:07 Alkaline Phosphatase 58 U/L (38-126) 06/09/17 07:07 Total Protein 4.9 g/dL (6.3-8.3) L 06/09/17 07:07 Albumin 2.8 g/dL (3.5-5.0) L 06/09/17 07:07 Globulin 2.1 gm/dL (2.2-3.9) L 06/09/17 07:07 Albumin/Globulin Ratio 1.3 (1.0-2.1) 06/09/17 07:07 Urine Color Yellow (YELLOW) 06/07/17 21: Urine Clarity Clear (Clear) 06/07/17 21: Urine pH 7.0 (5.0-8.0) 06/07/17 21: Ur Specific [place] 1.015 (1.003-1.030) 06/07/17 21: Urine Protein Negative mg/dL (NEGATIVE) 06/07/17 21: Urine Glucose (UA) Normal mg/dL (Normal) 06/07/17 21: Urine Ketones Trace mg/dL (NEGATIVE) 06/07/17 21: Urine Blood 1+ (NEGATIVE) H 06/07/17 21:29 Urine Nitrate Negative (NEGATIVE) 06/07/17 21: Urine Bilirubin Negative (NEGATIVE) 06/07/17 21: Urine Urobilinogen Normal mg/dL (0.2-1.0) 06/07/17 21:29 Ur Leukocyte Esterase Trace Heide/uL (Negative) 06/07/17 21:29 Urine WBC (Auto) 14 /hpf (0-5) H 06/07/17 21:29 Urine RBC (Auto) 11 /hpf (0-3) H 06/07/17 21:29 Ur Squamous Epith Cells 1 /hpf (0-5) 06/07/17 21:29 Urine Bacteria Rare (<OCC) 06/07/17 21:29 Urine HCG, Qual Negative (NEGATIVE) 06/07/17 09:17 Blood Type O POSITIVE 06/07/17 11:11 Antibody Screen Negative 06/07/17 11:11 - Hospital Course Hospital Course: female, PMHx includes Anemia, Anxiety, Crohn's Disease, Diabetes, Endometriosis , Gall Bladder Disease, Kidney Stones, Personality Disorder, Medullary Sponge Kidney presents with abdominal pain. The patient was recently seen in the emergency room the same issue on 05/18/17. It was discovered that the patient had an 6-7mm obstructing distal right ureteral calculus causing mild right hydronephrosis. Patient was going to be admitted but she did not want to be and requested to be discharged home with pain medication. Patient discharged home from ED on Augmentin for 7 days, Reglan, Percocet (14 tabs) and Flomax. Patient returned to the emergency room today because the pain never went away and is now worse. The patient states the pain starts suprapubically and then radiates around her right side into her low back on the right side only. Denies any pain on the left. Patient reports that her urine has been changing colors recently. She states it turned a dark brown to red to yellow and then the cycle repeats. The patient reports that she has been urinating less and less and now feels that she can not urinate more than a couple of drops, even though she feels like she needs to urinate. Patient reports subjective fevers, chills, nausea without vomiting and a migraine (3 days straight). Denies SOB, chest pain, numbness or tingling. PMD: Dr. Marte PMH: Anemia, Anxiety, Crohn's Disease, Diabetes, Fibroids, Endometriosis, Gall Bladder Disease, Kidney Stones, Personality Disorder, Medullary Sponge Kidney PSH: Appendectomy, Cholecystectomy, patient in too much pain (stopped answering questions) Family: unknown Social: former smoker (quit 3 months ago), denies alcohol or illicit drug use Allergies: Cipro (rash), Metronidazole (rash), Cefadroxil Hydrate (Rash), Ibuprofen (shortness of breath) Home Meds: none HOSPITAL COURSE: A CT abdomen/pelvis done on 06/07/17 showed a 6.5 mm calculus distal right ureter with persistent moderate right-sided hydronephrosis. 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 (see chart records for full report). Patient was given NS fluids at 150 cc/hr, flomax 0.4mg po qd and morphine 3mg q3 to control her pain. Urology, Dr Pedro, was consulted. After discussing the case with him he advised that the patient be discharged on flomax 0.4mg and that she come to his office within 1 week. He did not think a cystoscopy or stent was needed at this time. The patient was also treated for a UTI. Urinalysis showed 1+ blood, ketones trace, leuk ary trace, bacteria rare. Urine and blood cultures were negative for growth after 48 hours. She was given aztreonam 1g ivpb q12h during her stay and discharged with augmentin. She was also discharged with percocet 9 tablets for pain, and floxmax as recommended by Dr Pedro. Discharge Exam - Head Exam Head Exam: ATRAUMATIC, NORMOCEPHALIC - Eye Exam Eye Exam: EOMI, Normal appearance - ENT Exam ENT Exam: Mucous Membranes Moist - Neck Exam Neck exam: Normal Inspection - Respiratory Exam Respiratory Exam: Clear to PA & Lateral, NORMAL BREATHING PATTERN. absent: Rales, Rhonchi, Wheezes - Cardiovascular Exam Cardiovascular Exam: REGULAR RHYTHM, +S1, +S2. absent: Bradycardia, Tachycardia , JVD, Systolic Murmur - GI/Abdominal Exam GI & Abdominal Exam: Normal Bowel Sounds, Soft, Unremarkable. absent: Distended , Rebound, Rigid, Tenderness - Extremities Exam Extremities exam: full ROM, normal inspection - Back Exam Back exam: FULL ROM. absent: CVA tenderness (L), CVA tenderness (R), rash noted - Neurological Exam Neurological exam: Alert, CN II-XII Intact, Normal Gait, Oriented x3 - Psychiatric Exam Psychiatric exam: Normal Affect, Normal Mood - Skin Skin Exam: Dry, Intact, Normal Color, Warm Discharge Plan - Discharge Medications Prescriptions: Amoxicillin/Clavulanate [Augmentin 875 MG-125 MG Tab] 1 tab PO TID #15 tab oxyCODONE/Acetaminophen [Percocet 5/325 mg Tab] 1 tab PO QID PRN #14 tab PRN Reason: Pain Tamsulosin [Flomax] 0.4 mg PO DAILY #30 cap - Follow Up Plan Condition: FAIR Disposition: HOME/ ROUTINE Instructions: Urinary Tract Infection in Women (DC), Urinary Tract Infection in Men (DC), Dysuria (GEN) Additional Instructions: Patient is medically stable for discharge. We have discussed your case with urologist Dr Pedro and he would like you to see him in his office within a week. (Patient has Dr Pedro business card ) Please follow-up with your PMD, Dr Marte, as soon as possible. A copy of your discharge summary will be faxed to him. Discharge medications: Tamsulosin 0.4mg po qd for 30 days Keflex 500mg po bid for 7 days Percocet 1 tab q8 prn for pain (9 tabs total) <Ike Villatoro - Last Filed: 06/10/17 16:45> Provider - Provider Date of Admission: 06/07/17 12:19 Attending physician: Son Elmore DO Hospital Course - Lab Results Lab Results: Micro Results 06/07/17 15:00 Blood Blood Culture - Preliminary NO GROWTH AFTER 48 HOURS 06/07/17 14:30 Blood Blood Culture - Preliminary NO GROWTH AFTER 48 HOURS 06/07/17 09:20 Urine,Clean Catch Urine Culture - Final No Growth (<1,000 CFU/ML) Most Recent Lab Values WBC 3.9 K/uL (4.8-10.8) L 06/09/17 07:07 RBC 3.57 Mil/uL (3.80-5.20) L 06/09/17 07:07 Hgb 10.1 g/dL (11.0-16.0) L 06/09/17 07:07 Hct 30.3 % (34.0-47.0) L 06/09/17 07:07 MCV 84.8 fL (81.0-99.0) 06/09/17 07:07 MCH 28.3 pg (27.0-31.0) 06/09/17 07:07 MCHC 33.4 g/dL (33.0-37.0) 06/09/17 07:07 RDW 13.9 % (11.5-14.5) 06/09/17 07:07 Plt Count 161 K/uL (130-400) 06/09/17 07:07 MPV 9.3 fL (7.2-11.7) 06/09/17 07:07 Neut % (Auto) 54.1 % (50.0-75.0) 06/09/17 07:07 Lymph % (Auto) 30.9 % (20.0-40.0) 06/09/17 07:07 [place] % (Auto) 9.7 % (0.0-10.0) 06/09/17 07:07 Eos % (Auto) 4.2 % (0.0-4.0) H 06/09/17 07:07 Baso % (Auto) 1.1 % (0.0-2.0) 06/09/17 07:07 Neut # 2.1 K/uL (1.8-7.0) 06/09/17 07:07 Lymph # 1.2 K/uL (1.0-4.3) 06/09/17 07:07 [place] # 0.4 K/uL (0.0-0.8) 06/09/17 07:07 Eos # 0.2 K/uL (0.0-0.7) 06/09/17 07:07 Baso # 0.0 K/uL (0.0-0.2) 06/09/17 07:07 PT 11.3 SECONDS (9.7-12.2) 06/07/17 11:11 INR 1.0 06/07/17 11:11 APTT 37 SECONDS (21-34) H 06/07/17 11:11 Sodium 135 mmol/L (132-148) 06/09/17 07:07 Potassium 3.7 mmol/L (3.6-5.2) 06/09/17 07:07 Chloride 107 mmol/L (98-107) 06/09/17 07:07 Carbon Dioxide 22 mmol/L (22-30) 06/09/17 07:07 Anion Gap 9 (10-20) L 06/09/17 07:07 BUN 11 mg/dL (7-17) 06/09/17 07:07 Creatinine 1.0 mg/dL (0.7-1.2) 06/09/17 07:07 Est GFR ( Amer) > 60 06/09/17 07:07 Est GFR (Non-Af Amer) > 60 06/09/17 07:07 Random Glucose 83 mg/dL (65-105) 06/09/17 07:07 Calcium 7.6 mg/dl (8.6-10.4) L 06/09/17 07:07 Total Bilirubin 0.5 mg/dL (0.2-1.3) 06/09/17 07:07 AST 20 U/L (14-36) 06/09/17 07:07 ALT 33 U/L (9-52) 06/09/17 07:07 Alkaline Phosphatase 58 U/L (38-126) 06/09/17 07:07 Total Protein 4.9 g/dL (6.3-8.3) L 06/09/17 07:07 Albumin 2.8 g/dL (3.5-5.0) L 06/09/17 07:07 Globulin 2.1 gm/dL (2.2-3.9) L 06/09/17 07:07 Albumin/Globulin Ratio 1.3 (1.0-2.1) 06/09/17 07:07 Urine Color Yellow (YELLOW) 06/07/17 21: Urine Clarity Clear (Clear) 06/07/17 21: Urine pH 7.0 (5.0-8.0) 06/07/17 21: Ur Specific [place] 1.015 (1.003-1.030) 06/07/17 21: Urine Protein Negative mg/dL (NEGATIVE) 06/07/17 21: Urine Glucose (UA) Normal mg/dL (Normal) 06/07/17 21: Urine Ketones Trace mg/dL (NEGATIVE) 06/07/17 21: Urine Blood 1+ (NEGATIVE) H 06/07/17 21: Urine Nitrate Negative (NEGATIVE) 06/07/17 21: Urine Bilirubin Negative (NEGATIVE) 06/07/17 21: Urine Urobilinogen Normal mg/dL (0.2-1.0) 06/07/17 21:29 Ur Leukocyte Esterase Trace [place]/uL (Negative) 06/07/17 21:29 Urine WBC (Auto) 14 /hpf (0-5) H 06/07/17 21:29 Urine RBC (Auto) 11 /hpf (0-3) H 06/07/17 21:29 Ur Squamous Epith Cells 1 /hpf (0-5) 06/07/17 21: Urine Bacteria Rare (<OCC) 06/07/17 21: Urine HCG, Qual Negative (NEGATIVE) 06/07/17 09:17 Blood Type O POSITIVE 06/07/17 11:11 Antibody Screen Negative 06/07/17 11:11 Attending/Attestation - Attestation I have personally seen and examined this patient.: Yes I have fully participated in the care of the patient.: Yes I have reviewed all pertinent clinical information, including history, physical exam and plan: Yes Notes (Text): 06/10/17 16:44 Patient was seen and examined with the resident.Assessment and plan discussed. Patient will be discharged on flomax,pain meds and antibiotics.F/U -urology
== END 2017-06-09 18:50 | disposition home or self-care (01) | DRG 323 ==
LOC: C.ER 08:41 → C.9E 12:19 → C.3T 14:41
PROVIDERS: ADMIT Hospitalist; ATTEND Hospitalist
DX: N13.2 Hydronephrosis with renal and ureteral calculous obstruction (principal); E11.22 Type 2 diabetes mellitus with diabetic chronic kidney disease; T81.30XA Disruption of wound, unspecified, initial encounter; N30.01 Acute cystitis with hematuria; K50.90 Crohn's disease, unspecified, without complications; Q61.5 Medullary cystic kidney; N18.9 Chronic kidney disease, unspecified; F41.9 Anxiety disorder, unspecified; D64.9 Anemia, unspecified; F60.9 Personality disorder, unspecified; Z90.49 Acquired absence of other specified parts of digestive tract; Z87.891 Personal history of nicotine dependence; Z76.5 Malingerer [conscious simulation]

== ENCOUNTER 2017-06-10 22:12 | Emergency (ER) | payer OTHER ==
[2017-06-10 22:13] VITALS: BMI 24.8
[2017-06-10 22:26] VITALS: TEMP 98.7; O2SAT 98
[2017-06-10 22:53] LABS: RBC URINE 2 /hpf (0-3); URINE BACTERIA FEW (<OCC); URINE BILIRUBIN NEGATIVE (NEGATIVE); URINE BLOOD NEGATIVE (NEGATIVE); URINE COLOR Straw (YELLOW); URINE GLUCOSE (UA) NORMAL (Normal); URINE KETONE NEGATIVE (NEGATIVE); URINE LEUKOCYTE ESTERASE 3+ Leu/uL (Negative); URINE PROTEIN NEGATIVE (NEGATIVE); URINE UROBILINOGEN NORMAL mg/dL (0.2-1.0); WBC URINE 30 /hpf (0-5)
[2017-06-10] MEDS ORDERED: Sodium Chloride 0.9% 1,000 ML IV ONE (23:12)
--- NOTE | 2017-06-10 23:16 | C.PDOC ---
History Of Present Illness 32 year old female with a Hx of medullary sponge kidney with multiple prior kidney stones, crohn's disease, who was recently discharged from the hospital yesterday after being admitted for a 6mm stone reports today with vague diffuse abdominal discomfort. Patient did not take any medications at home to alleviate the pain though she has medications at home. Patient states she has had the sensation to have a bowel movement but rarely does and when she does it is very little and loose. Denies vomiting, dysuria, or Hx of IBS. Pts prior admission was as follows Hospital Course: female, PMHx includes Anemia, Anxiety, Crohn's Disease, Diabetes, Endometriosis , Gall Bladder Disease, Kidney Stones, Personality Disorder, Medullary Sponge Kidney presents with abdominal pain. The patient was recently seen in the emergency room the same issue on 05/18/17. It was discovered that the patient had an 6-7mm obstructing distal right ureteral calculus causing mild right hydronephrosis. Patient was going to be admitted but she did not want to be and requested to be discharged home with pain medication. Patient discharged home from ED on Augmentin for 7 days, Reglan, Percocet (14 tabs) and Flomax. Patient returned to the emergency room today because the pain never went away and is now worse. The patient states the pain starts suprapubically and then radiates around her right side into her low back on the right side only. Denies any pain on the left. Patient reports that her urine has been changing colors recently. She states it turned a dark brown to red to yellow and then the cycle repeats. The patient reports that she has been urinating less and less and now feels that she can not urinate more than a couple of drops, even though she feels like she needs to urinate. Patient reports subjective fevers, chills, nausea without vomiting and a migraine (3 days straight). Denies SOB, chest pain, numbness or tingling. PMD: Dr. Marte PMH: Anemia, Anxiety, Crohn's Disease, Diabetes, Fibroids, Endometriosis, Gall Bladder Disease, Kidney Stones, Personality Disorder, Medullary Sponge Kidney PSH: Appendectomy, Cholecystectomy, patient in too much pain (stopped answering questions) Family: unknown Social: former smoker (quit 3 months ago), denies alcohol or illicit drug use Allergies: Cipro (rash), Metronidazole (rash), Cefadroxil Hydrate (Rash), Ibuprofen (shortness of breath) Home Meds: none HOSPITAL COURSE: A CT abdomen/pelvis done on 06/07/17 showed a 6.5 mm calculus distal right ureter with persistent moderate right-sided hydronephrosis. 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 (see chart records for full report). Patient was given NS fluids at 150 cc/hr, flomax 0.4mg po qd and morphine 3mg q3 to control her pain. Urology, Dr Pedro, was consulted. After discussing the case with him he advised that the patient be discharged on flomax 0.4mg and that she come to his office within 1 week. He did not think a cystoscopy or stent was needed at this time. The patient was also treated for a UTI. Urinalysis showed 1+ blood, ketones trace, leuk ary trace, bacteria rare. Urine and blood cultures were negative for growth after 48 hours. She was given aztreonam 1g ivpb q12h during her stay and discharged with augmentin. She was also discharged with percocet 9 tablets for pain, and floxmax as recommended by Dr Pedro Time Seen by Provider: 06/10/17 22:58 Chief Complaint (Nursing): Abdominal Pain History Per: Patient History/Exam Limitations: no limitations Onset/Duration Of Symptoms: Hrs Current Symptoms Are (Timing): Still Present Location Of Pain/Discomfort: Diffuse Radiation Of Pain To:: None Quality Of Discomfort: Unable To Describe Associated Symptoms: denies: Fever, Chills, Nausea, Vomiting, Urinary Symptoms Exacerbating Factors: None Alleviating Factors: None Recent travel outside of the [place]: No Past Medical History Reviewed: Historical Data, Nursing Documentation, Vital Signs Vital Signs: Last Vital Signs Temp 98.7 F 06/10/17 22:19 Pulse 70 06/10/17 23:40 Resp 14 06/10/17 23:40 BP 133/85 06/10/17 23:40 Pulse Ox 98 06/11/17 00:28 - Medical History PMH: Anemia, Anxiety, Crohn's Disease, Diabetes, Fractures (RIGHT HAND-CASTED ONLY), Gall Bladder Disease, Kidney Stones, Personality Disorder, Chronic Kidney Disease Surgical History: Appendectomy, Cholecystectomy Family History: States: Unknown Family Hx - Social History Hx Tobacco Use: Yes Hx Alcohol Use: No Hx Substance Use: No - Immunization History Hx Tetanus Toxoid Vaccination: No Hx Influenza Vaccination: No Hx Pneumococcal Vaccination: No Review Of Systems Constitutional: Negative for: Fever, Chills Respiratory: Negative for: Shortness of Breath Gastrointestinal: Positive for: Abdominal Pain. Negative for: Vomiting Genitourinary: Negative for: Dysuria Physical Exam - Physical Exam Appears: Non-toxic, No Acute Distress Skin: Normal Color, Warm, Dry Head: Atraumatic, Normacephalic Oral Mucosa: Moist Lymphatic: Normal Exam, No Adenopathy Chest: Symmetrical, No Tenderness Cardiovascular: Rhythm Regular Respiratory: Normal Breath Sounds, No Rales, No Rhonchi, No Wheezing Gastrointestinal/Abdominal: Soft, No Tenderness, Guarding (Subjective voluntary guarding at periumbilical area), No Rebound Pulses: Left Radial: Normal, Right Radial: Normal Neurological/Psych: Oriented x3, Normal Speech, Normal Cognition ED Course And Treatment - Laboratory Results Result Diagrams: 06/10/17 23:34 06/10/17 23:34 ECG: Interpreted By Me ECG Rhythm: Sinus Rhythm ECG Interpretation: Normal, No Acute Changes Interpretation Of ECG: NSR at 67 BPM,no ectopy,no sttw changes O2 Sat by Pulse Oximetry: 98 (Room air) Pulse Ox Interpretation: Normal Medical Decision Making Medical Decision Making: Plan: * Blood work * Bentyl * Urinalysis * Pt is noted to have bacteruris,pos LE 3 plus.Will tx for UTI.Pt has abiotic prescription at home which she never got filled Disposition - Disposition Referrals: Raf Marte DO [Staff Provider] - Disposition: HOME/ ROUTINE Disposition Time: 00:25 Condition: FAIR Forms: [facility] ([place]) - Clinical Impression Clinical Impression: UTI (urinary tract infection) - Scribe Statement The provider has reviewed the documentation as recorded by the Scribe Lev Peck All medical record entries made by the Scribe were at my direction and personally dictated by me. I have reviewed the chart and agree that the record accurately reflects my personal performance of the history, physical exam, medical decision making, and the department course for this patient. I have also personally directed, reviewed, and agree with the discharge instructions and disposition.
[2017-06-10] MEDS ORDERED: Sodium Chloride 0.9% 1,000 ML ONE (23:37)
[2017-06-10 23:44] LABS: CHLORIDE 102 mmol/L (98-107)
[2017-06-10 23:45] LABS: BASO # 0.1 K/uL (0.0-0.2); BASO % 1.4 % (0.0-2.0); EOS # 0.2 K/uL (0.0-0.7); EOS % 4.9 % (0.0-4.0); LYMPH # 1.6 K/uL (1.0-4.3); LYMPH % 32.2 % (20.0-40.0); MEAN CORPUSCULAR HEMOGLOBIN 28.2 pg (27.0-31.0); MEAN CORPUSCULAR HGB CONC 33.5 g/dL (33.0-37.0); MEAN PLATELET VOLUME 8.8 fL (7.2-11.7); MONO # 0.6 K/uL (0.0-0.8); MONO % 11.5 % (0.0-10.0); NRBC % 0.4 % (0.0-2.0); POTASSIUM 3.1 mmol/L (3.6-5.2); RED CELL DISTRIBUTION WIDTH 13.8 % (11.5-14.5); SODIUM 135 mmol/L (132-148); WHITE BLOOD COUNT 4.9 K/uL (4.8-10.8)
[2017-06-10 23:47] LABS: ALB/GLOB RATIO 1.5 (1.0-2.1); AST/SGOT 73 U/L (14-36); BILIRUBIN,TOTAL 0.4 mg/dL (0.2-1.3); BLOOD UREA NITROGEN 11 mg/dL (7-17); CARBON DIOXIDE 25 mmol/L (22-30); GFR AFRICAN-AMERICAN > 60; TOTAL PROTEIN 5.7 g/dL (6.3-8.3)
[2017-06-10 23:48] LABS: ALKALINE PHOSPHATASE 78 U/L (38-126); ALT/SGPT 95 U/L (9-52); CALCIUM 8.7 mg/dl (8.6-10.4); GLUCOSE,RANDOM 95 mg/dL (65-105)
[2017-06-10 23:51] VITALS: BP 133/85; PULSE 70; RESP 14
--- NOTE | 2017-06-11 23:43 | CARD ---
APPROVED REPORT EKG Measurement Heart [id number] <Conclusion> Normal sinus rhythm Normal ECG
== END 2017-06-11 00:45 | disposition home or self-care (01) ==
LOC: C.ER 22:12
DX: N39.0 Urinary tract infection, site not specified (principal)
CPT/HCPCS: 80053; 81001; 83690; 84703; 85025; 87086; 93005; 96360; 99284; J7040